=== PATIENT | male | born 1965 | race Caucasian/White ===

== ENCOUNTER 2022-07-23 16:24 | Inpatient (IN) | payer MEDICARE, MEDICAID, SELFPAY ==
[2022-07-23 16:44] VITALS: BP 115/70; PULSE 96; RESP 18; TEMP 36.2; O2SAT 98
--- NOTE | 2022-07-23 18:01 | W.ED.SKABFB ---
HPI - Skin/Abscess/Foreign Bdy General: Chief complaint: Skin/Abscess/Foreign Body Stated complaint: Extremely swollen Left leg Time Seen by Provider: 07/23/22 18:01 History of Present Illness: Mr. Zuñiga is a 57-year-old gentleman without reported past medical history presents to the emergency department due to left lower extremity concern. Reports initially having a scratch in 2017 due to chronic wound. He previously followed with wound care however was having improvement and so he stopped going. For some time now he has had worsening appearance including lower extremity edema. He incidentally saw [facility] earlier today and was referred to the emergency department. Denies systemic illness. Does endorse pain especially with ambulation. No other specific changes in health, exacerbating, or alleviating factors identified. Onset (ago): year(s) Location: LLE Severity: moderate Quality: aching Exacerbating factors: movement Context: none Associated symptoms: Reports no associated symptoms Review of Systems General: Reports: 10 or more systems reviewed and unremarkable except in HPI and below PFSH ED PFSH: Medical History (Updated 07/30/22 @ 10:30 by ROSINA Mercer) Cellulitis Chronic wound of extremity No significant past medical history Surgical History No significant past surgical history Physical Exam Const: COMMON NORMALS: alert GENERAL APPEARANCE: cooperative and well developed HENMT: COMMON NORMALS: normocephalic and atraumatic HEAD & SCALP: normocephalic and atraumatic THROAT: posterior oropharynx normal Eye: COMMON NORMALS: conjunctivae normal CONJUNCTIVA: Yes conjunctivae normal SCLERA: sclerae normal Neck/C-Spine: COMMON NORMALS: supple GENERAL: Yes trachea midline Resp: COMMON NORMALS: normal respiratory effort EFFORT & INSPECTION: Yes able to speak in complete sentences Cardio: COMMON NORMALS: regular rate and regular rhythm RATE: regular rate RHYTHM: regular rhythm GI: COMMON NORMALS: Soft to palpation PALPATION: Yes Soft to palpation and No Tenderness to palpation present (GI) PERCUSSION: normal to percussion Extremity: NARRATIVE EXTREMITY EXAM: Significant edema extending from the left foot all the way up to the left knee region. Erythema to mid calf. Significant wound which is circumferential about the left mid calf with areas of necrotic tissue. GENERAL: Yes normal exam except as noted and No edema Neuro: COMMON NORMALS: moves all extremities SENSORIUM/ORIENTATION: Yes alert and No Orientation impaired Psych: COMMON NORMALS: mental status grossly normal and Normal thought process present THOUGHT PROCESS: Normal thought process present Course Vital Signs: Vital signs: Vital Signs Temperature 97.6 F 07/26/22 15:49 Pulse Rate 102 H 07/26/22 15:49 Respiratory Rate 18 07/26/22 15:49 Blood Pressure 139/88 07/26/22 15:49 Pulse Oximetry 97 07/26/22 15:49 Oxygen Delivery Me thod 07/26/22 12:00 MDM - Skin/Abscess/Foreign Bdy Medicial Decision Making 57-year-old gentleman presenting with worsening symptoms associated with chronic wound. Exam as above. Wound is extensive and quite concerning with surrounding areas of erythema and edema. Labs with no leukocytosis, normocytic anemia present. No significant metabolic derangement. Inflammatory markers moderately elevated. X-ray negative for acute bony injury. Arterial and venous studies negative for significant arterial insufficiency or DVT. Given patient's reported worsening symptoms of concern for acute infection or chronic wound. Patient treated with antibiotics. Patient will be evaluated inpatient by Dr. Vasquez. The results of ED evaluation were discussed with the patient including plan for admission due to requirement for level of care not available if discharged to prevent significant worsening/deterioration. Patient agreeable with plan. Discussed with hospitalist service who was agreeable to admit patient. Medical Records I reviewed the patient's medical records. Lab Data I reviewed the patient's lab results. 07/26/22 04:49 07/25/22 05:40 Radiology Impressions Duplex Scan Lower Extremity Artery 07/23/22 18:10 IMPRESSION: No hemodynamically significant stenosis or occlusion. Venous Duplex 07/23/22 18:10 IMPRESSION: No sonographic evidence of deep vein thrombosis. Tibia/Fibula X-Ray 07/23/22 19:55 IMPRESSION: Severe, diffuse soft tissue swelling. Laboratory Results WBC 10.0 10^3/uL (4.0-10.0) 07/23/22 21:20 Corrected WBC Cancelled 07/23/22 20:21 RBC 3.90 10^6/uL (4.1-5.3) L 07/23/22 21:20 Hgb 11.1 g/dL (11.7-16.6) L 07/23/22 21:20 Hct 36.0 % (42.0-52.0) L 07/23/22 21:20 MCV 92.3 fl (80-94) 07/23/22 21:20 MCH 28.5 pg (28.0-34.0) 07/23/22 21:20 MCHC 30.8 g/dL (30.0-36.0) 07/23/22 21:20 RDW 14.8 % (12.1-15.1) 07/23/22 21:20 Plt Count 387 10^3/cmm (130-400) 07/23/22 21:20 MPV 9.9 fL (7.4-10.4) 07/23/22 21:20 Gran % Cancelled 07/23/22 20:21 Neut % (Auto) 69.1 % 07/23/22 21:20 Lymph % (Auto) 19.1 % 07/23/22 21:20 Gallia % (Auto) 10.9 % 07/23/22 21:20 Eos % (Auto) 0.0 % 07/23/22 21:20 Baso % (Auto) 0.6 % 07/23/22 21:20 Neut # (Auto) 6.88 10^3/uL (1.8-7.7) 07/23/22 21:20 Lymph # (Auto) 1.9 10^3/uL (0.8-4.8) 07/23/22 21:20 Gallia # (Auto) 1.1 10^3/uL (0.2-0.9) H 07/23/22 21:20 Eos # (Auto) 0.0 10^3/uL (0.0-0.8) 07/23/22 21:20 Baso # (Auto) 0.1 10^3/uL (0.0-0.1) 07/23/22 21:20 Absolute Gran (auto) Cancelled 07/23/22 20:21 Nucleated RBC % (auto) 0 % 07/23/22 21:20 Nucleated RBCs # 0.0 /100WBC 07/23/22 21:20 ESR 18 mm/hr (0-10) H 07/23/22 21:20 Sodium 140 mmol/L (136-145) 07/23/22 21:20 Potassium 4.0 mmol/L (3.5-5.1) 07/23/22 21:20 Chloride 104 mmol/L (98-107) 07/23/22 21:20 Carbon Dioxide 24 mmol/L (22-29) 07/23/22 21:20 Anion Gap 16.0 (5-19) 07/23/22 21:20 BUN 13 mg/dL (6-20) 07/23/22 21:20 Creatinine 0.9 mg/dL (0.7-1.2) 07/23/22 21:20 GFR Calculation 86.4 mL/min (90-130) L 07/23/22 21:20 Glucose 118 mg/dL (65-115) H 07/23/22 21:20 Calculated Osmolality 291 mOsm/kg (285-295) 07/23/22 21:20 Calcium 8.9 mg/dL (8.5-10.5) 07/23/22 21:20 Total Bilirubin 0.3 mg/dL (0.15-1.2) 07/23/22 21:20 AST 12 U/L (0-40) 07/23/22 21:20 ALT 10 U/L (0-41) 07/23/22 21:20 Alkaline Phosphatase 117 U/L (40-130) 07/23/22 21:20 C-Reactive Protein 50.9 mg/L (0.0-4.9) H 07/23/22 21:20 Total Protein 7.1 g/dL (6.6-8.7) 07/23/22 21:20 Albumin 3.3 g/dL (3.5-5.2) L 07/23/22 21:20 Globulin 3.8 g/dL (1.3-4.6) 07/23/22 21:20 Discharge Plan Discharge Patient Disposition: Placed in Observation Admit Provider: Francia Sorenson Clinical Impression: Cellulitis, Chronic wound of extremity Coding Level of Care Code 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
--- NOTE | 2022-07-23 18:10 | USR_ITS ---
PROCEDURE INFORMATION: Exam: US Duplex Left Lower Extremity Arteries Or Arterial Bypass Grafts Exam date and time: 07/23/2022 6:44 PM Age: 57 years old Clinical indication: Other: Patient has been seen in wound clinic since 2019 for this same problem of red, oozing, pus-filled, malodorous left mid calf to include all of the left foot. Patient denies dm. ; Additional info: Chronic wound TECHNIQUE: Imaging protocol: Left Real-time duplex scan of the arteries or arterial bypass grafts of the left lower extremity with 2-D boateng scale, color Doppler flow and spectral waveform analysis. Images documented and saved. COMPARISON: [place] [id number] 07/23/2022 6:26 PM FINDINGS: Left external iliac artery: No occlusion or significant stenosis. Normal waveform. Left common femoral artery: No occlusion or significant stenosis. Normal waveform. Left profunda femoral artery: No occlusion or significant stenosis. Normal waveform. Left superficial femoral artery: No occlusion or significant stenosis. Normal waveform. Left popliteal artery: No occlusion or significant stenosis. Normal waveform. Left calf/foot arteries: No occlusion or significant stenosis in the visualized arteries. Normal waveforms. Dorsalis pedis artery [place] patent. US/[place] [id number] IMPRESSION: No hemodynamically significant stenosis or occlusion.
--- NOTE | 2022-07-23 18:10 | USR_ITS ---
PROCEDURE INFORMATION: Exam: US Duplex Left Lower Extremity Veins, Limited Exam date and time: 07/23/2022 6:26 PM Age: 57 years old Clinical indication: Other: Chronic severe, pus-filled, oozing, red, malodorous from mid left calf inferiorly x 2 years. Has been seen in wound clinic. ; Additional info: Swelling, wound TECHNIQUE: Imaging protocol: Real-time Duplex ultrasound of the Left Lower Extremity with 2-D boateng scale, color Doppler flow and spectral waveform analysis with image documentation. Limited exam focused on the left lower extremity veins. COMPARISON: No relevant prior studies available. FINDINGS: Left deep veins: Unremarkable. The common femoral, femoral, proximal profunda femoral, popliteal, posterior tibial and peroneal veins are patent without thrombus. Normal compressibility, augmentation response and Doppler waveforms. Left superficial veins: Unremarkable. Saphenofemoral junction is patent without thrombus. Soft tissues: Unremarkable. US/CV venous duplex [facility] [id number] IMPRESSION: No sonographic evidence of deep vein thrombosis.
--- NOTE | 2022-07-23 19:55 | XRR_ITS ---
PROCEDURE INFORMATION: Exam: XR Left Tibia and Fibula Exam date and time: 07/23/2022 8:07 PM Age: 57 years old Clinical indication: Pain; Lower leg; Left; Additional info: Wound TECHNIQUE: Imaging protocol: Radiologic exam of the Left tibia and fibula. Views: 2 views. COMPARISON: US CV arterial duplex [facility] [id number] 07/23/2022 6:44 PM FINDINGS: Bones/joints: No radiographic evidence of acute fracture or dislocation. Alignment anatomic. Mild degenerative changes. Soft tissues: Severe, diffuse soft tissue swelling. XR/XR tibia fibula LT 2V [id number] IMPRESSION: Severe, diffuse soft tissue swelling.
[2022-07-23 21:34] LABS: Basophils # 0.1 10^3/uL (0.0-0.1); Basophils % 0.6 %; Hemoglobin 11.1 g/dL (11.7-16.6); Lymphocytes # 1.9 10^3/uL (0.8-4.8); Lymphocytes % 19.1 %; Mean Corpuscular HGB Conc 30.8 g/dL (30.0-36.0); Mean Corpuscular Hemoglobin 28.5 pg (28.0-34.0); Mean Corpuscular Volume 92.3 fl (80-94); Mean Platelet Volume 9.9 fL (7.4-10.4); Monocytes # 1.1 10^3/uL (0.2-0.9); Monocytes % 10.9 %; Neutrophils # 6.88 10^3/uL (1.8-7.7); Neutrophils % 69.1 %; Nucleated Red Blood Cells % 0 %; Platelet Count 387 10^3/cmm (130-400); Red Cell Distribution Width 14.8 % (12.1-15.1)
[2022-07-23 21:36] VITALS: BP 127/88; PULSE 78; RESP 16; O2SAT 97
[2022-07-23 21:37] LABS: Erythrocyte Sedimentation Rate 18 mm/hr (0-10)
[2022-07-23 21:57] LABS: Alanine Aminotransferase 10 U/L (0-41); Albumin Level 3.3 g/dL (3.5-5.2); Alkaline Phosphatase 117 U/L (40-130); Aspartate Amino Transferase 12 U/L (0-40); Blood Urea Nitrogen 13 mg/dL (6-20); C Reactive Protein 50.9 mg/L (0.0-4.9); Calcium 8.9 mg/dL (8.5-10.5); Carbon Dioxide 24 mmol/L (22-29); Chloride 104 mmol/L (98-107); Globulin 3.8 g/dL (1.3-4.6); Glomerular Filtration Rate 86.4 mL/min (90-130); Glucose 118 mg/dL (65-115); Osmolality Calculated 291 mOsm/kg (285-295); Sodium 140 mmol/L (136-145); Total Bilirubin 0.3 mg/dL (0.15-1.2); Total Protein 7.1 g/dL (6.6-8.7)
--- NOTE | 2022-07-23 22:29 | P.HP_ITS ---
Providers/Chief Complaint Chief Complaint: Extremely swollen Left leg History of Present Illness Rayshawn Zuñiga is a 57 year old male with no significant past medical history presented to the hospital with complaint of a chronic wound that has not been worsening. He says in 2017 in the winter due to central heating he had very dry skin in the area of itching himself to the point where he had skin breakage. He believes he impacted his leg at that point. He tried to take care of it on his own but then ended up going to wound care clinic. He was asked to wrap it and not to let water run on it. He states he did not shower for quite some time and that made the leg worse. When he ended up washing it which took care of the foul smell however the wound started worsening. Today nothing acutely has changed however he says his mother convinced him to go to the ER to seek medical attention for his leg. This is a chronic wound for him. He has been having drainage which he feels is ascitic and it valentni. He has had arterial and venous Dopplers which have been negative. In the ER he was placed on vancomycin and Zosyn and Dr. Rhodes was contacted who will see the patient in consultation. Afebrile. Denies cough, shortness of breath, nausea, vomiting, diarrhea. He did mention to me that he used to have a home care nurse come to the house in the past but no longer. Medications/Allergies Allergies Allergy/AdvReac Type Severity Reaction Status Date / Time No Known Allergies Allergy Verified 07/23/22 16:44 PFSH Acute PFSH: Medical History (Updated 07/23/22 @ 22:21 by Andrea Lima MD) No significant past medical history Surgical History (Updated 07/23/22 @ 19:05 by Andrea Lima MD) No significant past surgical history Vitals/I&O/Wt Last Vital Signs Temp 97.1 F L 07/23/22 16:44 Pulse 78 07/23/22 21:36 Resp 16 07/23/22 21:36 BP 127/88 07/23/22 21:36 Pulse Ox 97 07/23/22 21:36 O2 Del Method 07/23/22 21:36 Weight last 48 hrs Weight 137.438 kg Physical Exam Narrative: General: Alert oriented x3, patient seen sitting in bed. No acute distress. HEENT: Normocephalic, atraumatic, EOMI, Cardio: Regular rate rhythm, normal S1-S2 Respiratory: Good bilateral air entry, no wheezes no rhonchi appreciated GI: Abdomen soft, nontender, nondistended, bowel sounds + Extremities: Pulses present bilaterally with Doppler. Left lower extremity swollen, erythematous all the way up to knee. Foul-smelling drainage present. Please see attached picture. Data 07/23/22 21:20 07/23/22 21:20 Micro: Microbiology 07/23/22 20:21 Blood Culture - Preliminary Blood SPECIMEN COLLECTED 07/23/22 20:21 Blood Culture - Preliminary Blood SPECIMEN COLLECTED A&P Assessment and plan (1) Cellulitis: (2) Chronic wound of extremity: Plan #Acute on chronic left lower extremity wound #Cellulitis left lower extremity -Consult wound care. Dr. Devine will evaluate patient in a.m. ? Continue vancomycin and Zosyn ? CRP 50.9. Lactic acid normal 1.1. Sed rate 15. ? Await wound care recommendations. For now wrapped with gauze wet-to-dry dressing ? Check procalcitonin ? X-ray tibia fibula shows severe diffuse soft tissue swelling. DVT ruled out. Venous Dopplers done in the ER. Arterial Dopplers lower extremity did not show any significant stenosis or occlusion. ? Check blood cultures ? Check wound cultures ? Patient will probably benefit from debridement. Await further recommendations Full code DVT prophylaxis: Heparin SQ twice daily Attestations Medical Necessity Statement*: Requires greater than 2 midnight stay for man agement of cellulitis and acute on chronic left lower extremity wound. Patient will need possible surgical debridement and IV antibiotics. Coding Level of Care Code Acute Solution Developer for [facility] Fwd Diagnoses Cellulitis L03.90 Chronic wound of extremity
[2022-07-23] MEDS: cefTRIAXone 1,000 MG in sodium chloride 0.9% (plus) 50 ML 100 MG IV (22:32)
[2022-07-23] MEDS: benzonatate 100 mg Capsule PO (23:09)
--- NOTE | 2022-07-23 23:16 | PC.NURSE ---
ADMIT NOTE Pt received to room from ER via wheelchair. Is alert and oriented. Having a persistent dry cough which he says started in the ER and not present before. Given po Tessalon Pearls. Came in for swelling in left leg. Has swelling & redness from knee to foot. Says has had watery drainage and pain with wt bearing. Denies any fevers. Says all started from him scratching for dry skin and broke skin with the scratching. Says wound care for awhile but says was not really helping. This was in 2021 and says over last 6 months to year has been getting progressively worse. Recieved IV Rocephin in the ER and started IV Vancomycin on admission. L lower leg with dressing that was placed in the ER. RN to complete admission assessment
[2022-07-23 23:53] VITALS: BP 128/81; PULSE 94; RESP 17; TEMP 36.9; O2SAT 95
[2022-07-24] VITALS (7 sets, daily range): BP systolic 107–128; BP diastolic 64–81; PULSE 79–94; RESP 16–22; TEMP 36.4–36.9; O2SAT 93–97
[2022-07-24] MEDS: heparin 5,000 unit/mL INJ 1 mL 5000 UNIT SUBCUT ×4 (00:07→23:10)
[2022-07-24] MEDS: sodium chloride 0.9% 1,000 ML 75 ML IV (00:07)
[2022-07-24] MEDS: piperacillin-tazobactam 3.375 GM in sodium chloride 0.9% (plus) 50 ML IV ×3 (00:08→17:40)
[2022-07-24 01:37] LABS: Basophils % 0.5 %; Eosinophils % 0.1 %; Hematocrit 32.8 % (42.0-52.0); Hemoglobin 10.1 g/dL (11.7-16.6); Lymphocytes # 1.5 10^3/uL (0.8-4.8); Lymphocytes % 18.5 %; Mean Corpuscular HGB Conc 30.8 g/dL (30.0-36.0); Mean Corpuscular Hemoglobin 28.1 pg (28.0-34.0); Mean Corpuscular Volume 91.4 fl (80-94); Mean Platelet Volume 10.2 fL (7.4-10.4); Monocytes % 12.3 %; Neutrophils # 5.47 10^3/uL (1.8-7.7); Neutrophils % 68.3 %; Nucleated Red Blood Cells % 0 %; Platelet Count 348 10^3/cmm (130-400); Red Blood Count 3.59 10^6/uL (4.1-5.3); Red Cell Distribution Width 14.7 % (12.1-15.1)
--- NOTE | 2022-07-24 01:45 | PC.NURSE ---
DR VISIT Dr Sorenson on floor to see pt. Wanted dressing removed so she could see wound and take pictures. Wound redressed afterwards. Able to find both pedal & dorsalis pedia pulses with doppler
[2022-07-24 02:17] LABS: Alanine Aminotransferase 7 U/L (0-41); Albumin Level 2.9 g/dL (3.5-5.2); Alkaline Phosphatase 104 U/L (40-130); Aspartate Amino Transferase 12 U/L (0-40); Blood Urea Nitrogen 10 mg/dL (6-20); Carbon Dioxide 22 mmol/L (22-29); Chloride 108 mmol/L (98-107); Creatinine Clr Calc Pharmacy 148.6058; Globulin 3.2 g/dL (1.3-4.6); Glomerular Filtration Rate 98.9 mL/min (90-130); Glucose 123 mg/dL (65-115); Osmolality Calculated 292 mOsm/kg (285-295); Sodium 141 mmol/L (136-145); Total Bilirubin 0.3 mg/dL (0.15-1.2); Total Protein 6.1 g/dL (6.6-8.7)
[2022-07-24 02:18] LABS: Lactic Sepsis W/Reflex 1.1 mmol/L (0.5-2.2)
[2022-07-24 02:21] LABS: Procalcitonin 0.04 ng/mL (0-0.5)
[2022-07-24] MEDS: vancomycin 1,250 MG/250 ML PIGGYBACK 250 MG IV ×3 (06:33→22:07)
--- NOTE | 2022-07-24 09:12 | P.PN_ITS ---
Subjective Subjective: Patient stating that he has stopped going to wound care and clinic No active leg pain No signs of vascular compromise Complaining of mild tingling sensation in his left leg He lives alone Vitals/I&O/Wt Last Vital Signs Temp 98.5 F 07/24/22 07:59 Pulse 84 07/24/22 07:59 Resp 16 07/24/22 07:59 BP 117/71 07/24/22 07:59 Pulse Ox 93 07/24/22 07:59 O2 Del Method 07/24/22 07:59 07/23/22 07/24/22 07/24/22 22:59 06:59 14:59 Intake Total 800 / 800 250 / 250 Output Total 700 / 700 Balance 100 / 100 250 / 250 Weight last 48 hrs Weight 137.438 kg Physical Exam Narrative: Obese male Current HemeTab is able Doing well improvement Complaining of pain in his left leg No signs of vascular compromise His calf is swollen which is chronic for him no active tenderness or crepitation noted No signs of vascular compromise Necrotic tissue around upper edges of the wound There is an area of the wound around ankle which has scarred fibrosed dressing Data 07/24/22 00:56 07/24/22 00:56 Micro: Microbiology 07/23/22 20:21 Blood Culture - Preliminary Blood SPECIMEN COLLECTED 07/23/22 20:21 Blood Culture - Preliminary Blood SPECIMEN COLLECTED A&P Assessment and plan (1) Cellulitis: (2) Chronic wound of extremity: Plan Cellulitis of lower extremity Patient might need debridement of the tissue from the upper edges of the wound For now we doing wet-to-dry dressing, Daikin, during dressing change, no signs o f vascular compromise No arterial insufficiency Foot is warm Nontender to touch No signs of crepitation Will follow up with Dr. 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
--- NOTE | 2022-07-24 09:13 | PC.CHAP ---
Pastoral Care Encounter/Spiritual Assessment Type of Contact [] Declined compressor engineer visit [] Patient/Family/Request visit [] Outpatient visit [] Follow-up visit [] Physician referral [] Code/Alert [x] Routine visit [] Staff referral [] Actively dying [] Patient sleeping [] Family support [] [] Out of room [] Palliative care [] [] Receiving care in room [] Pre-surgical visit [] Trauma [] Long length of stay [] ICU visit [] Other: Relational/Emotional Strength [x] Patient feels connected with others/family/visitors/staff [] Distress [] Loneliness/isolation [] Abandonment Spirituality of Patient [] Person of Lizzie [] Attends Yazidi of their Lizzie [] Believes in Prayer [] Reads Bible or Anglican materials [x] There are Spiritual issues to be addressed 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 Interventions [] Prayer [x] Active listening [x] Non-anxious presence [x] Spiritual/emotional support [] Crisis/trauma care [] Spiritual counseling [] Bereavement support [] Provided bereavement packet [] Provided Bible/devotional materials [] Provided toy/stuffed animal, coloring book to patient or family member [] Provided Communion [] Anointing/Dun[place] [] Salvation [x] Completed spiritual assessment [] Other: Impact on Illness or Injury [] Angry [] Fearful [] Anxious [] Often cries [] Exhaustion [] Unable to work [] Unable to attend jainism [] Unable to walk/stand [] Unable to read [] Unable to drive [] Unable to eat/drink [] Unable to sleep [] Unable to be with family [] Patient intubated [] Other: Summary Pt has a painful would on his leg. He said he has been dealing with it since 2017. Visit ended when staff entered to care for Pt Time spent with patient 10m
[2022-07-24 09:42] LABS: Estmated Average Glucose 123; Hemoglobin A1C 5.9 % (4.0-6.0)
[2022-07-24] MEDS: gabapentin 100 mg Capsule PO (17:43)
--- NOTE | 2022-07-24 18:43 | PM.CONSULT ---
Providers/Reason For Consult Consulting Physician/Specialty*: Dr. Rhodes/wound care services Reason for Consult*: Chronic circumferential left lower extremity wound Requesting Physician: Dr. Woodall Attending Physician: Hector Woodall MD History of Present Illness History of Present Illness Rayshawn Zuñiga is a 57 year old male who was admitted on July 23 is presenting to the emergency department for advice of family member concerning a chronic circumferential left lower extremity wound which is been present since 2017. Patient is unable concerns of increasing malodor with wound. He also reports some slight increase in drainage though does note that it drains frequently. Since admission, patient's been receiving Dakin's wet-to-dry dressings. He has been placed on Zosyn and vancomycin. He remains afebrile. Venous duplex studies negative for DVT. Arterial duplex study revealed no evidence for substantial arterial obstruction. Wound begins at the proximal portion of the forefoot level of the ankle and extends several centimeters proximally and circumferentially. Initial laboratory data revealed a white count of 10,000 with a CRP of 51. ESR was 18. Wound culture returned mixed superficial jess on day 1. Blood cultures have been collected and Covid reports are pending. He reports a past history of borderline diabetes and states that diabetes is in his family. He resides in [place] and is lived there his entire life. He has no consistent healthcare and states he goes to the walk-in clinic when needed. Medications/Allergies Home Medications Medication Instructions Recorded Confirmed Last Taken Type No Known Home Medications 07/24/22 07/24/22 Unknown History Allergies Allergy/AdvReac Type Severity Reaction Status Date / Time No Known Allergies Allergy Verified 07/23/22 16:44 Current Medications Generic Name Dose Route Start Last Admin Trade Name Freq PRN Reason Stop Dose Admin Benzonatate 100 mg 07/23/22 22:44 07/23/22 23:09 Benzonatate 100 Mg Capsule PO 100 mg TID PRN Administration COUGH Gabapentin 100 mg 07/24/22 18:00 07/24/22 17:43 Gabapentin 100 Mg Capsule PO 100 mg BID AUTUMN Administration Heparin Sodium (Porcine) 5,000 unit 07/23/22 23:45 07/24/22 14:17 Heparin 5,000 Unit/Ml Inj 1 Ml SUBCUT 5,000 unit Q8H AUTUMN Administration Piperacillin Sod/Tazobactam 50 mls @ 12.5 mls/hr 07/24/22 00:00 07/24/22 17:40 Sod 3.375 gm/ Sodium Chloride IV 12.5 mls/hr Q8H AUTUMN Administration Vancomycin/PEG/NADA/Lysine/Water 1,250 mg in 250 mls @ 250 mls/hr 07/24/22 07:00 07/24/22 15:15 Vancocin IV Infused Q8H AUTUMN Infusion PFSH Acute PFSH: Medical History No significant past medical history Surgical History No significant past surgical history Vitals/I&O/Wt Last Vital Signs Temp 98.2 F 07/24/22 15:49 Pulse 89 07/24/22 15:49 Resp 16 07/24/22 15:49 BP 111/64 07/24/22 15:49 Pulse Ox 96 07/24/22 15:49 O2 Del Method 07/24/22 15:49 07/24/22 07/24/22 07/24/22 06:59 14:59 22:59 Intake Total 800 / 800 1266.25 / 1266.25 490 / 1756.25 Output Total 700 / 700 600 / 600 Balance 100 / 100 666.25 / 666.25 490 / 1156.25 Weight last 48 hrs Weight 303 lb Physical Exam Const: COMMON NORMALS: no acute distress, patient oriented x3, healthy appearing and alert HENMT: COMMON NORMALS: normocephalic, atraumatic and hearing grossly normal bilaterally HEAD & SCALP: normocephalic and atraumatic Neck/C-Spine: COMMON NORMALS: full ROM and no lymphadenopathy Chest: COMMONS NORMALS: normal palpation of entire chest wall Resp: COMMON NORMALS: normal respiratory effort Cardio: COMMON NORMALS: regular rate, regular rhythm, S1 normal heart sound present, No murmurs present (Cardio) and No rub (Cardio) RATE: regular rate RHYTHM: regular rhythm HEART SOUNDS: S1 normal heart sound present GI: COMMON NORMALS: Normal to inspection, nondistended, normoactive bowel sounds present Extremity: NARRATIVE EXTREMITY EXAM: He has venous stasis changes with discoloration bilaterally (the right. He has no wounds on the right side reports no history for wounds on the right lower extremity. He has a superficial wound extending from the ankle proximally several centimeters. There is moderate granulation circumferentially as well with slightly mucoid drainage from the wound. This can be easily cleared with 4 x 4 sponge gauze. There is minimal periwound erythema. There is no malodor. There is no vinicius treatments. He states wound is been present in some form since 2017. Apparently, he was recommended for compressive therapy during his previous visits to wound care services years ago, though he states he has not been doing that. Neuro: COMMON NORMALS: patient oriented x3 SENSORIUM/ORIENTATION: Yes alert Data 07/24/22 00:56 07/24/22 00:56 Micro: Microbiology 07/23/22 19:05 Wound Culture - Preliminary Leg - #1 07/23/22 20:21 Blood Culture - Preliminary Blood SPECIMEN COLLECTED 07/23/22 20:21 Blood Culture - Preliminary Blood SPECIMEN COLLECTED A&P Assessment and plan (1) Chronic wound of extremity: Chronic superficial wound of the distal left lower extremity just above the ankle. Normal arterial duplex. Normal venous study which ruled out DVT. No study to assess reflux provocation was performed. Initial impression is consistent with probable venous reflux disease and incontinence. Given chronicity and size of the wound and circumferential nature, I believe consideration should be made for wound VAC, negative pressure therapy for initial treatment. This would be contagious given his location and [place] and distance to wound care services. This would most practical if home arrangements can be made to assist with wound VAC dressing changes to allow for twice weekly changes. He can be followed in [facility] wound care services at discharge. Ultimately, he will need compression therapy to assist with healing and clearly with maintenance of skin integrity. I think the rate of the wound will be an extended period of time given his chronicity and intermediate care. If the bacteria cannot be arranged prior to discharge, patient should receive wet-to-dry dressing changes and moderate Leonel bandage. I suspect with the amount of serous drainage, dressing changes will need to be performed at least twice daily to 3 times daily. Consult Attestations Medical Necessity Statement: Chronic left lower extremity wound Time Spent in Patient Care: 16 - 35 minutes Coding Level of Care Code New Pt Acute Special Educator for Chg Fwd Patient Type New History Expanded Problem Focused Exam Expanded Problem Focused Medical Decision Making Moderate Complexity Diagnoses Chronic wound of extremity Time Spent (min) 35
[2022-07-25] MEDS: piperacillin-tazobactam 3.375 GM in sodium chloride 0.9% (plus) 50 ML IV (00:55)
[2022-07-25 04:00] VITALS: BP 155/80; PULSE 72; RESP 16; TEMP 36.6; O2SAT 95
[2022-07-25 05:54] LABS: Basophils # 0.1 10^3/uL (0.0-0.1); Eosinophils # 0.3 10^3/uL (0.0-0.8); Eosinophils % 4.4 %; Hemoglobin 10.8 g/dL (11.7-16.6); Lymphocytes # 1.7 10^3/uL (0.8-4.8); Mean Corpuscular HGB Conc 30.9 g/dL (30.0-36.0); Mean Corpuscular Hemoglobin 28.3 pg (28.0-34.0); Mean Corpuscular Volume 91.9 fl (80-94); Mean Platelet Volume 9.9 fL (7.4-10.4); Monocytes # 0.6 10^3/uL (0.2-0.9); Monocytes % 9.6 %; Neutrophils # 3.44 10^3/uL (1.8-7.7); Neutrophils % 56.7 %; Nucleated Red Blood Cells % 0 %; Platelet Count 374 10^3/cmm (130-400); Red Blood Count 3.81 10^6/uL (4.1-5.3); Red Cell Distribution Width 14.9 % (12.1-15.1); White Blood Count 6.1 10^3/uL (4.0-10.0)
[2022-07-25 06:08] LABS: Anion Gap 15.8 (5-19); Blood Urea Nitrogen 8 mg/dL (6-20); Calcium 8.3 mg/dL (8.5-10.5); Carbon Dioxide 21 mmol/L (22-29); Chloride 110 mmol/L (98-107); Creatinine Clr Calc Pharmacy 148.6058; Glomerular Filtration Rate 98.9 mL/min (90-130); Glucose 122 mg/dL (65-115); Osmolality Calculated 296 mOsm/kg (285-295); Potassium 3.8 mmol/L (3.5-5.1); Sodium 143 mmol/L (136-145)
[2022-07-25 06:37] LABS: Vancomycin Trough 23.8 ug/mL (10-15)
[2022-07-25 07:29] VITALS: BP 112/73; PULSE 67; RESP 16; TEMP 36.8; O2SAT 95
--- NOTE | 2022-07-25 10:24 | PC.CHAP ---
Pastoral Care Encounter/Spiritual Assessment Type of Contact [] Declined churn operator visit [] Patient/Family/Request visit [] Outpatient visit [] Follow-up visit [] Physician referral [] Code/Alert [x] Routine visit [] Staff referral [] Actively dying [] Patient sleeping [] Family support [] [] Out of room [] Palliative care [] [x] Receiving care in room [] Pre-surgical visit [] Trauma [] Long length of stay [] ICU visit [] Other: Relational/Emotional Strength [x] Patient feels connected with others/family/visitors/staff [] Distress [] Loneliness/isolation [] Abandonment Spirituality of Patient [x] Person of Lizzie [] Attends Gnosticist of their Lizzie [x] Believes in Prayer [] Reads Bible or Religion materials [] There are Spiritual issues to be addressed Airplane Patroller Interventions [x] Prayer [x] Active listening [x] Non-anxious presence [x] Spiritual/emotional support [] Crisis/trauma care [x] Spiritual counseling [] Bereavement support [] Provided bereavement packet [] Provided Bible/devotional materials [] Provided toy/stuffed animal, coloring book to patient or family member [] Provided Communion [] Anointing/[place] [] Salvation [] Completed spiritual assessment [] Other: Impact on Illness or Injury [] Angry [] Fearful [] Anxious [] Often cries [] Exhaustion [] Unable to work [] Unable to attend religion [] Unable to walk/stand [] Unable to read [] Unable to drive [] Unable to eat/drink [] Unable to sleep [] Unable to be with family [] Patient intubated [] Other: Summary congetion is feeling better has a good attitude going home Time spent with patient 10 mins
--- NOTE | 2022-07-25 10:44 | P.PN_ITS ---
Subjective Subjective: No overnight events Appreciate Dr. Rhodes's recommendations Patient is stating that his tingling sensation has improved after placement of dressing He thinks the serous drainage has decreased in quantity Vitals/I&O/Wt Last Vital Signs Temp 98.3 F 07/25/22 07:29 Pulse 67 07/25/22 07:29 Resp 16 07/25/22 07:29 BP 112/73 07/25/22 07:29 Pulse Ox 95 07/25/22 07:29 O2 Del Method 07/25/22 07:29 07/24/22 07/25/22 07/25/22 22:59 06:59 14:59 Intake Total 740 / 2006.25 660 / 2666.25 240 / 240 Output Total 625 / 1225 325 / 1550 Balance 115 / 781.25 335 / 1116.25 240 / 240 Weight last 48 hrs Weight 137.438 kg Physical Exam Narrative: Patient is sitting comfortably in his bed Eating breakfast He was on room air Hemodynamically stable Abdomen soft Foot covered with dressing, serous drainage noted from his wound No active pain No sign of vascular compromise Swelling seems to be slightly better S1, S2 Edema, PERRLA Data 07/25/22 05:40 07/25/22 05:40 Micro: Microbiology 07/23/22 20:21 Blood Culture - Preliminary Blood NEGATIVE TO DATE 07/23/22 20:21 Blood Culture - Preliminary Blood NEGATIVE TO DATE 07/23/22 19:05 Wound Culture - Preliminary Leg - #1 A&P Assessment and plan (1) Cellulitis: (2) Chronic wound of extremity: Plan Spoke with Dr. Rhodes who is recommending daily dressing change, looking into options to see if we can arrange home health if not possible then we will discharge him on oral antibiotics tomorrow with outpatient wound care clinic follow-up Will touch base with bilingual patient support caseworker Discontinued IV antibiotics No signs of sepsis I will cover him with Augmentin and doxycycline for now We will give him Lasix Slight improvement of swelling of left leg No signs of vascular compromise Patient is not diabetic Currently doing well on room air Plan to discharge tomorrow DVT prophylaxis on board Daily dressing change twice a day wet-to-dry, please see Dr. Rhodes's wound care orders Attestations Medical Necessity Statement*: Discharge tomorrow Time Spent in Patient Care: 40 Coding Level of Care Code Acute Shirring Tender for g Fwd Diagnoses Cellulitis L03.90 Chronic wound of extremity
[2022-07-25] MEDS: potassium chloride ER 20 mEq Tablet 40 MEQ PO (11:10)
[2022-07-25] MEDS: FUROsemide 10 mg/mL SDV 2mL 20 MG IVP (11:10)
[2022-07-25] MEDS: heparin 5,000 unit/mL INJ 1 mL 5000 UNIT SUBCUT ×3 (11:11→23:12)
[2022-07-25] MEDS: gabapentin 100 mg Capsule PO ×2 (11:11→17:23)
[2022-07-25] MEDS: sennosides-docusate Tablet 1 TAB PO (11:11)
[2022-07-25 11:48] VITALS: BP 125/79; PULSE 91; RESP 16; TEMP 36.6; O2SAT 98
[2022-07-25 16:00] VITALS: BP 123/77; PULSE 105; RESP 15; TEMP 36.8; O2SAT 96
[2022-07-25] MEDS: doxycycline 100 mg Tablet PO (17:23)
[2022-07-25] MEDS: amoxicillin-clav 875-125 mg Tablet 1 TAB PO (17:23)
[2022-07-25 19:18] VITALS: BP 142/82; PULSE 86; RESP 22; TEMP 36.6; O2SAT 96
[2022-07-26] VITALS: BP 177/75; PULSE 74; RESP 22; TEMP 36.6; O2SAT 96
[2022-07-26 04:00] VITALS: BP 125/86; PULSE 89; RESP 27; TEMP 36.7; O2SAT 100
[2022-07-26 05:31] LABS: Basophils # 0.1 10^3/uL (0.0-0.1); Basophils % 1.1 %; Eosinophils # 0.2 10^3/uL (0.0-0.8); Eosinophils % 3.6 %; Hematocrit 35.2 % (42.0-52.0); Hemoglobin 10.8 g/dL (11.7-16.6); Lymphocytes % 37.4 %; Mean Corpuscular HGB Conc 30.7 g/dL (30.0-36.0); Mean Corpuscular Hemoglobin 28.6 pg (28.0-34.0); Mean Corpuscular Volume 93.1 fl (80-94); Mean Platelet Volume 10.2 fL (7.4-10.4); Monocytes # 0.5 10^3/uL (0.2-0.9); Neutrophils # 2.59 10^3/uL (1.8-7.7); Neutrophils % 48.7 %; Nucleated Red Blood Cells % 0 %; Platelet Count 382 10^3/cmm (130-400); Red Blood Count 3.78 10^6/uL (4.1-5.3); Red Cell Distribution Width 15.1 % (12.1-15.1); White Blood Count 5.3 10^3/uL (4.0-10.0)
--- NOTE | 2022-07-26 06:37 | P.DS_ITS ---
Discharge Providers Date of Admission: 07/23/22 22:21 Date of Discharge: July 26, 2022 Attending Provider at Admission: Francia Sorenson MD Attending Provider at Discharge: Hector Woodall MD Diagnoses at Discharge Discharge Diagnosis (1) Cellulitis: Status: Acute (2) Chronic wound of extremity: Status: Acute Reason for Visit Reason for Visit: Extremely swollen Left leg Hospital Course Hospital Course 57-year-old male with history of chronic lower extremity venous ulcer, history of noncompliance, stopped following up with wound care clinic, presented with chief complaint of increased drainage from his wound. Patient is stating that he was doing fine but his mother asked him to go to the hospital because of worsening of drainage from his left lower extremity. Dr. Rhodes was consulted. Kindly see his note for further details. Patient might benefit from wound VAC b ecause of increased drainage however it might be difficult to get dressing changed twice a week because of noncompliance with home health services in the past. Decision was made to discharge patient with dressing supplies and have him follow-up outpatient at wound care clinic. Patient is stating that his mother would be able to drive him there. He remained aseptic, afebrile. Suspicion for osteomyelitis is low. Blood cultures remain negative ESR not extremely high. He was given vancomycin and Zosyn which was de-escalated to Augmentin and doxycycline at the time of discharge. Adding gabapentin for neuropathic pain. Patient is not diabetic. Patient did not show any signs of vascular compromise or DVT Physical Exam Narrative: Awake and alert Morbidly obese Intellectual disability Short attention span however GCS 15 Pleasant to cooperate Hemodynamic stable doing well on room air Left leg chronic venous stasis ulcer, circumferential wound, severe edema of left calf no active crepitation, dressing soaked with serous discharge from the wound, good granulation tissue at the wound edges, Lower extremity is warm no signs of vascular compromise Discharge Data Studies Completed and Pending Completed Studies During Hospitalization Category Date Time Status XR tibia fibula LT 2V [id number] Stat Exams 07/23/22 19:55 Completed US arterial duplex lower extremity LT [CV arterial Ultrasound 07/23/22 18:10 [place] [id number]] Stat US venous duplex lower extremity LT [CV venous duplex Ultrasound 07/23/22 18:10 [place] [id number]] Stat Pending at discharge Category Date Time Status Blood Culture Stat Lab 07/23/22 20:21 Results Radiology Impressions Duplex Scan Lower Extremity Artery 07/23/22 18:10 IMPRESSION: No hemodynamically significant stenosis or occlusion. Venous Duplex 07/23/22 18:10 IMPRESSION: No sonographic evidence of deep vein thrombosis. Tibia/Fibula X-Ray 07/23/22 19:55 IMPRESSION: Severe, diffuse soft tissue swelling. Laboratory Results WBC 5.3 10^3/uL (4.0-10.0) 07/26/22 04:49 Corrected WBC Cancelled 07/23/22 20:21 RBC 3.78 10^6/uL (4.1-5.3) L 07/26/22 04:49 Hgb 10.8 g/dL (11.7-16.6) L 07/26/22 04:49 Hct 35.2 % (42.0-52.0) L 07/26/22 04:49 MCV 93.1 fl (80-94) 07/26/22 04:49 MCH 28.6 pg (28.0-34.0) 07/26/22 04:49 MCHC 30.7 g/dL (30.0-36.0) 07/26/22 04:49 RDW 15.1 % (12.1-15.1) 07/26/22 04:49 Plt Count 382 10^3/cmm (130-400) 07/26/22 04:49 MPV 10.2 fL (7.4-10.4) 07/26/22 04:49 Gran % Cancelled 07/23/22 20:21 Neut % (Auto) 48.7 % 07/26/22 04:49 Lymph % (Auto) 37.4 % 07/26/22 04:49 [place] % (Auto) 9.0 % 07/26/22 04:49 Eos % (Auto) 3.6 % 07/26/22 04:49 Baso % (Auto) 1.1 % 07/26/22 04:49 Neut # (Auto) 2.59 10^3/uL (1.8-7.7) 07/26/22 04:49 Lymph # (Auto) 2.0 10^3/uL (0.8-4.8) 07/26/22 04:49 [place] # (Auto) 0.5 10^3/uL (0.2-0.9) 07/26/22 04:49 Eos # (Auto) 0.2 10^3/uL (0.0-0.8) 07/26/22 04:49 Baso # (Auto) 0.1 10^3/uL (0.0-0.1) 07/26/22 04:49 Absolute Gran (auto) Cancelled 07/23/22 20:21 Nucleated RBC % (auto) 0 % 07/26/22 04:49 Nucleated RBCs # 0.0 /100WBC 07/26/22 04:49 ESR 18 mm/hr (0-10) H 07/23/22 21:20 Sodium 143 mmol/L (136-145) 07/25/22 05:40 Potassium 3.8 mmol/L (3.5-5.1) 07/25/22 05:40 Chloride 110 mmol/L (98-107) H 07/25/22 05:40 Carbon Dioxide 21 mmol/L (22-29) L 07/25/22 05:40 Anion Gap 15.8 (5-19) 07/25/22 05:40 BUN 8 mg/dL (6-20) 07/25/22 05:40 Creatinine 0.8 mg/dL (0.7-1.2) 07/25/22 05:40 GFR Calculation 98.9 mL/min (90-130) 07/25/22 05:40 Glucose 122 mg/dL (65-115) H 07/25/22 05:40 Estimat Average Glucose 123 07/24/22 00:56 Hemoglobin A1c 5.9 % (4.0-6.0) 07/24/22 00:56 Calculated Osmolality 296 mOsm/kg (285-295) H 07/25/22 05:40 Lactic Acid 1.1 mmol/L (0.5-2.2) 07/24/22 00:56 Calcium 8.3 mg/dL (8.5-10.5) L 07/25/22 05:40 Magnesium 2.0 mg/dL (1.7-2.3) 07/24/22 00:56 Total Bilirubin 0.3 mg/dL (0.15-1.2) 07/24/22 00:56 AST 12 U/L (0-40) 07/24/22 00:56 ALT 7 U/L (0-41) 07/24/22 00:56 Alkaline Phosphatase 104 U/L (40-130) 07/24/22 00:56 C-Reactive Protein 50.9 mg/L (0.0-4.9) H 07/23/22 21:20 Total Protein 6.1 g/dL (6.6-8.7) L 07/24/22 00:56 Albumin 2.9 g/dL (3.5-5.2) L 07/24/22 00:56 Globulin 3.2 g/dL (1.3-4.6) 07/24/22 00:56 Procalcitonin 0.04 ng/mL (0-0.5) 07/24/22 00:56 Vancomycin Trough 23.8 ug/mL (10-15) H 07/25/22 05:40 Vitals Last Vital Signs Temp 98.0 F 07/26/22 04:00 Pulse 89 07/26/22 04:00 Resp 27 H 07/26/22 04:00 BP 125/86 07/26/22 04:00 Pulse Ox 100 07/26/22 04:00 O2 Del Method 07/25/22 16:00 Discharge Plan Discharge Patient Disposition: Home Condition: Stable Prescriptions: New doxycycline monohydrate 100 mg Tablet 100 mg PO BID Qty: 20 0RF gabapentin 100 mg Capsule 100 mg PO BID Qty: 60 0RF amoxicillin-pot clavulanate 875-125 mg Tablet 1 tab PO BID Qty: 20 0RF No Action No Known Home Medications Discharge Orders: Discharge Order (Routine); Ordered 07/26/22 Ordered By: Hector Woodall Other Ambulatory Orders: DME: Foreign (Order) Location: None Selected Ordered By: Hector Woodall Referrals: Jaqueline Childress FNP [Nurse Practitioner] - 07/30/22 10:00 am WOUND CARE CLINIC, [Staff Physician] - 1-3 days Patient Instructions: Doxycycline (By mouth), Amoxicillin/Clavulanate Potassium (By mouth), Gabapentin (By mouth), Cellulitis (GEN), Opioid Safety Discharge Attestations Time Spent in Discharge Care*: less than 30 min Quality Metrics Clinical Quality Measures [ No reported AMI, CVA or VTE this stay] Coding Level of Care Code Acute Chg FW DC note Diagnoses Cellulitis L03.90 Chronic wound of extremity
[2022-07-26 08:00] VITALS: BP 121/75; PULSE 75; RESP 18; TEMP 36.7; O2SAT 96
[2022-07-26] MEDS: heparin 5,000 unit/mL INJ 1 mL 5000 UNIT SUBCUT (09:43)
[2022-07-26] MEDS: gabapentin 100 mg Capsule PO (09:44)
[2022-07-26] MEDS: doxycycline 100 mg Tablet PO (09:44)
[2022-07-26] MEDS: amoxicillin-clav 875-125 mg Tablet 1 TAB PO (09:44)
[2022-07-26 12:00] VITALS: BP 139/88; PULSE 102; RESP 18; TEMP 36.4; O2SAT 97
[2022-07-26 15:49] VITALS: BP 139/88; PULSE 102; RESP 18; TEMP 36.4; O2SAT 97
--- NOTE | 2022-07-26 15:58 | PC.NURSE ---
1415 discharge instructions given to patient who voiced understanding. wound care completed to left lower leg patient instructed on wound care. patient voiced understanding 1520 Patient discharged to home with mother patient taken to private car per staff in wheelchair. patient in stable condition.
== END 2022-07-26 15:20 | disposition home health service (06) | DRG 603 ==
LOC: ER 22:21 → MEDSURG 22:39
PROVIDERS: Admitting Provider Internal Medicine; Emergency Provider Emergency Medicine; Visit Provider Internal Medicine
DX: L03.116 Cellulitis of left lower limb (principal); Z91.199 Patient's noncompliance with other medical treatment and regimen due to unspecified reason; E66.01 Morbid (severe) obesity due to excess calories; Z68.37 Body mass index [BMI] 37.0-37.9, adult; R73.03 Prediabetes
CPT/HCPCS: 36415; 73590; 80048; 80053; 80202; 83036; 83605; 83735; 84145; 85025; 85651; 86140; 87040; 87070; 87077; 87186; 93926; 93971; 96372; 97161; 97530; J0696; J1644; J1940; J2543; J3370; J7030; J7040

== ENCOUNTER → 2022-08-05 08:02 | Outpatient (BNVA) | payer MEDICARE, MEDICAID, SELFPAY | PROVIDERS: PCP Family Medicine; Visit Provider Thoracic Surgery (Cardiothoracic Vascular Surgery) | DX: L03.116 Cellulitis of left lower limb (principal) | CPT/HCPCS: 11042; 11045; 99213; A6252; A6253 ==

== ENCOUNTER → 2022-08-12 09:19 | Outpatient (BNVA) | payer MEDICARE, MEDICAID, SELFPAY | PROVIDERS: PCP Family Medicine; Visit Provider Thoracic Surgery (Cardiothoracic Vascular Surgery) | DX: I96 Gangrene, not elsewhere classified (principal); L97.822 Non-pressure chronic ulcer of other part of left lower leg with fat layer exposed; L03.116 Cellulitis of left lower limb | CPT/HCPCS: 11042; 11045; A6252 ==

== ENCOUNTER → 2022-08-19 09:50 | Outpatient (BNVA) | payer MEDICARE, MEDICAID, SELFPAY | PROVIDERS: PCP Family Medicine; Visit Provider Thoracic Surgery (Cardiothoracic Vascular Surgery) | DX: L03.116 Cellulitis of left lower limb (principal); L97.822 Non-pressure chronic ulcer of other part of left lower leg with fat layer exposed | CPT/HCPCS: 11042; 11045; A6252 ==

== ENCOUNTER → 2022-08-26 09:31 | Outpatient (BNVA) | payer MEDICARE, MEDICAID, SELFPAY | PROVIDERS: PCP Family Medicine; Visit Provider Thoracic Surgery (Cardiothoracic Vascular Surgery) | DX: L03.116 Cellulitis of left lower limb (principal); L97.822 Non-pressure chronic ulcer of other part of left lower leg with fat layer exposed | CPT/HCPCS: 11042; 11045; A6252; A6253 ==

== ENCOUNTER → 2022-09-02 10:05 | Outpatient (BNVA) | payer MEDICARE, MEDICAID, SELFPAY | PROVIDERS: PCP Family Medicine; Visit Provider Thoracic Surgery (Cardiothoracic Vascular Surgery) | DX: I96 Gangrene, not elsewhere classified (principal); L97.822 Non-pressure chronic ulcer of other part of left lower leg with fat layer exposed; L03.115 Cellulitis of right lower limb | CPT/HCPCS: 11042; 11045; A6252 ==

== ENCOUNTER → 2022-09-09 10:40 | Outpatient (BNVA) | payer MEDICARE, MEDICAID, SELFPAY | PROVIDERS: PCP Family Medicine; Visit Provider Thoracic Surgery (Cardiothoracic Vascular Surgery) | DX: I96 Gangrene, not elsewhere classified (principal); L03.116 Cellulitis of left lower limb; L97.822 Non-pressure chronic ulcer of other part of left lower leg with fat layer exposed | CPT/HCPCS: 11042; 11045; A6253 ==

== ENCOUNTER → 2022-09-16 10:12 | Outpatient (BNVA) | payer MEDICARE, MEDICAID, SELFPAY | PROVIDERS: PCP Family Medicine; Visit Provider Thoracic Surgery (Cardiothoracic Vascular Surgery) | DX: I96 Gangrene, not elsewhere classified (principal); L97.822 Non-pressure chronic ulcer of other part of left lower leg with fat layer exposed; L03.116 Cellulitis of left lower limb | CPT/HCPCS: 11042; 11045; A6252; A6253 ==

== ENCOUNTER → 2022-09-23 10:57 | Outpatient (BNVA) | payer MEDICARE, MEDICAID, SELFPAY | PROVIDERS: PCP Family Medicine; Visit Provider Thoracic Surgery (Cardiothoracic Vascular Surgery) | DX: L03.115 Cellulitis of right lower limb (principal); L97.822 Non-pressure chronic ulcer of other part of left lower leg with fat layer exposed; I96 Gangrene, not elsewhere classified | CPT/HCPCS: 11042; 11045; A6252 ==

== ENCOUNTER → 2022-09-30 10:20 | Outpatient (BNVA) | payer MEDICARE, MEDICAID, SELFPAY | PROVIDERS: PCP Family Medicine; Visit Provider Thoracic Surgery (Cardiothoracic Vascular Surgery) | DX: I96 Gangrene, not elsewhere classified (principal); L97.822 Non-pressure chronic ulcer of other part of left lower leg with fat layer exposed; L03.115 Cellulitis of right lower limb | CPT/HCPCS: 11042; 11045; A6252 ==

== ENCOUNTER → 2022-10-07 10:56 | Outpatient (BNVA) | payer MEDICARE, MEDICAID, SELFPAY | PROVIDERS: PCP Family Medicine; Visit Provider Thoracic Surgery (Cardiothoracic Vascular Surgery) | DX: L03.116 Cellulitis of left lower limb (principal); L97.822 Non-pressure chronic ulcer of other part of left lower leg with fat layer exposed | CPT/HCPCS: 11042; 11045; A6253 ==

== ENCOUNTER → 2022-10-14 09:41 | Outpatient (BNVA) | payer MEDICARE, MEDICAID, SELFPAY | PROVIDERS: PCP Family Medicine; Visit Provider Nurse Practitioner Family | DX: L97.822 Non-pressure chronic ulcer of other part of left lower leg with fat layer exposed (principal); L03.116 Cellulitis of left lower limb | CPT/HCPCS: 97597; 97598; A6252; A6253 ==

== ENCOUNTER → 2022-10-21 10:01 | Outpatient (BNVA) | payer MEDICARE, MEDICAID, SELFPAY | PROVIDERS: PCP Family Medicine; Visit Provider Thoracic Surgery (Cardiothoracic Vascular Surgery) | DX: I96 Gangrene, not elsewhere classified (principal); L97.822 Non-pressure chronic ulcer of other part of left lower leg with fat layer exposed; L03.116 Cellulitis of left lower limb | CPT/HCPCS: 11042; 11045; A6253 ==

== ENCOUNTER → 2022-10-28 09:15 | Outpatient (BNVA) | payer MEDICARE, MEDICAID, SELFPAY | PROVIDERS: PCP Family Medicine; Visit Provider Thoracic Surgery (Cardiothoracic Vascular Surgery) | DX: I96 Gangrene, not elsewhere classified (principal); L97.822 Non-pressure chronic ulcer of other part of left lower leg with fat layer exposed; L03.116 Cellulitis of left lower limb | CPT/HCPCS: 11042; 11045; A6253 ==

== ENCOUNTER → 2022-11-04 09:25 | Outpatient (BNVA) | payer MEDICARE, MEDICAID, SELFPAY | PROVIDERS: PCP Family Medicine; Visit Provider Thoracic Surgery (Cardiothoracic Vascular Surgery) | DX: I96 Gangrene, not elsewhere classified (principal); L97.822 Non-pressure chronic ulcer of other part of left lower leg with fat layer exposed; L03.116 Cellulitis of left lower limb | CPT/HCPCS: 11042; 11045; A6210; A6253 ==

== ENCOUNTER → 2022-11-11 09:26 | Outpatient (BNVA) | payer MEDICARE, MEDICAID, SELFPAY | PROVIDERS: PCP Family Medicine; Visit Provider Thoracic Surgery (Cardiothoracic Vascular Surgery) | DX: I96 Gangrene, not elsewhere classified (principal); L97.822 Non-pressure chronic ulcer of other part of left lower leg with fat layer exposed; L03.116 Cellulitis of left lower limb | CPT/HCPCS: 97597; 97598; A6210; A6253 ==

== ENCOUNTER → 2022-11-18 10:10 | Outpatient (BNVA) | payer MEDICARE, MEDICAID, SELFPAY | PROVIDERS: PCP Family Medicine; Visit Provider Thoracic Surgery (Cardiothoracic Vascular Surgery) | DX: I96 Gangrene, not elsewhere classified (principal); L97.822 Non-pressure chronic ulcer of other part of left lower leg with fat layer exposed; L03.116 Cellulitis of left lower limb | CPT/HCPCS: 11042; 11045; A6253 ==

== ENCOUNTER → 2022-11-25 10:06 | Outpatient (BNVA) | payer MEDICARE, MEDICAID, SELFPAY | PROVIDERS: PCP Family Medicine; Visit Provider Nurse Practitioner Family | DX: I96 Gangrene, not elsewhere classified (principal); L97.822 Non-pressure chronic ulcer of other part of left lower leg with fat layer exposed; L03.116 Cellulitis of left lower limb | CPT/HCPCS: 11042; 11045; A6253 ==

== ENCOUNTER → 2022-12-02 09:19 | Outpatient (BNVA) | payer MEDICARE, MEDICAID, SELFPAY | PROVIDERS: PCP Family Medicine; Visit Provider Thoracic Surgery (Cardiothoracic Vascular Surgery) | DX: L03.116 Cellulitis of left lower limb (principal); I96 Gangrene, not elsewhere classified; S81.812D Laceration without foreign body, left lower leg, subsequent encounter; X58.XXXD Exposure to other specified factors, subsequent encounter | CPT/HCPCS: 11042; 11045; A6210; A6253 ==

== ENCOUNTER → 2022-12-09 10:05 | Outpatient (BNVA) | payer MEDICARE, MEDICAID, SELFPAY | PROVIDERS: PCP Family Medicine; Visit Provider Thoracic Surgery (Cardiothoracic Vascular Surgery) | DX: L03.116 Cellulitis of left lower limb (principal); L97.821 Non-pressure chronic ulcer of other part of left lower leg limited to breakdown of skin; I96 Gangrene, not elsewhere classified | CPT/HCPCS: 11042; 11045; A6253 ==

== ENCOUNTER → 2022-12-23 09:49 | Outpatient (BNVA) | payer MEDICARE, MEDICAID, SELFPAY | PROVIDERS: PCP Family Medicine; Visit Provider Thoracic Surgery (Cardiothoracic Vascular Surgery) | DX: I96 Gangrene, not elsewhere classified (principal); L97.822 Non-pressure chronic ulcer of other part of left lower leg with fat layer exposed; L03.116 Cellulitis of left lower limb | CPT/HCPCS: 97597; 97598; A6253 ==

== ENCOUNTER → 2022-12-30 08:50 | Outpatient (BNVA) | payer MEDICARE, MEDICAID, SELFPAY | PROVIDERS: PCP Family Medicine; Visit Provider Thoracic Surgery (Cardiothoracic Vascular Surgery) | DX: I96 Gangrene, not elsewhere classified (principal); L97.822 Non-pressure chronic ulcer of other part of left lower leg with fat layer exposed; L03.116 Cellulitis of left lower limb | CPT/HCPCS: 97597; 97598; A6252 ==

== ENCOUNTER → 2023-01-06 09:55 | Outpatient (BNVA) | payer MEDICARE, MEDICAID, SELFPAY | PROVIDERS: PCP Family Medicine; Visit Provider Thoracic Surgery (Cardiothoracic Vascular Surgery) | DX: I87.2 Venous insufficiency (chronic) (peripheral) (principal); I96 Gangrene, not elsewhere classified; L97.822 Non-pressure chronic ulcer of other part of left lower leg with fat layer exposed | CPT/HCPCS: 97597; 97598; A6253 ==

== ENCOUNTER → 2023-01-13 10:07 | Outpatient (BNVA) | payer MEDICARE, MEDICAID, SELFPAY | PROVIDERS: PCP Family Medicine; Visit Provider Thoracic Surgery (Cardiothoracic Vascular Surgery) | DX: I96 Gangrene, not elsewhere classified (principal); I87.2 Venous insufficiency (chronic) (peripheral); L97.822 Non-pressure chronic ulcer of other part of left lower leg with fat layer exposed | CPT/HCPCS: 97597; 97598; A6210; A6253 ==

== ENCOUNTER → 2023-01-20 09:47 | Outpatient (BNVA) | payer MEDICARE, MEDICAID, SELFPAY | PROVIDERS: PCP Family Medicine; Visit Provider Thoracic Surgery (Cardiothoracic Vascular Surgery) | DX: I87.2 Venous insufficiency (chronic) (peripheral) (principal); L97.822 Non-pressure chronic ulcer of other part of left lower leg with fat layer exposed | CPT/HCPCS: 97597; 97598; A6210; A6252 ==

== ENCOUNTER → 2023-01-27 09:45 | Outpatient (BNVA) | payer MEDICARE, MEDICAID, SELFPAY | PROVIDERS: PCP Family Medicine; Visit Provider Thoracic Surgery (Cardiothoracic Vascular Surgery) | DX: I96 Gangrene, not elsewhere classified (principal); I87.2 Venous insufficiency (chronic) (peripheral); L97.822 Non-pressure chronic ulcer of other part of left lower leg with fat layer exposed | CPT/HCPCS: 97597; 97598; A6210; A6252 ==

== ENCOUNTER → 2023-02-03 09:27 | Outpatient (BNVA) | payer MEDICARE, MEDICAID, SELFPAY | PROVIDERS: PCP Family Medicine; Visit Provider Nurse Practitioner Family | DX: I96 Gangrene, not elsewhere classified (principal); I87.2 Venous insufficiency (chronic) (peripheral); L97.822 Non-pressure chronic ulcer of other part of left lower leg with fat layer exposed | CPT/HCPCS: 97597; 97598; A6210; A6253 ==

== ENCOUNTER → 2023-02-10 09:37 | Outpatient (BNVA) | payer MEDICARE, MEDICAID, SELFPAY | PROVIDERS: PCP Family Medicine; Visit Provider Thoracic Surgery (Cardiothoracic Vascular Surgery) | DX: I96 Gangrene, not elsewhere classified (principal); I87.2 Venous insufficiency (chronic) (peripheral); L97.822 Non-pressure chronic ulcer of other part of left lower leg with fat layer exposed | CPT/HCPCS: 11042; 11045; A6210; A6253 ==

== ENCOUNTER → 2023-02-17 10:32 | Outpatient (BNVA) | payer MEDICARE, MEDICAID, SELFPAY | PROVIDERS: PCP Family Medicine; Visit Provider Nurse Practitioner Family | DX: I96 Gangrene, not elsewhere classified (principal); I87.2 Venous insufficiency (chronic) (peripheral); L97.822 Non-pressure chronic ulcer of other part of left lower leg with fat layer exposed | CPT/HCPCS: 97597; 97598; A6210; A6253 ==

== ENCOUNTER → 2023-02-24 10:14 | Outpatient (BNVA) | payer MEDICARE, MEDICAID, SELFPAY | PROVIDERS: PCP Family Medicine; Visit Provider Thoracic Surgery (Cardiothoracic Vascular Surgery) | DX: I96 Gangrene, not elsewhere classified (principal); I87.2 Venous insufficiency (chronic) (peripheral); L97.822 Non-pressure chronic ulcer of other part of left lower leg with fat layer exposed | CPT/HCPCS: 11042; 11045; A6021; A6253 ==

== ENCOUNTER → 2023-03-03 10:32 | Outpatient (BNVA) | payer MEDICARE, MEDICAID, SELFPAY | PROVIDERS: PCP Family Medicine; Visit Provider Thoracic Surgery (Cardiothoracic Vascular Surgery) | DX: I96 Gangrene, not elsewhere classified (principal); I87.2 Venous insufficiency (chronic) (peripheral); L97.822 Non-pressure chronic ulcer of other part of left lower leg with fat layer exposed | CPT/HCPCS: 11042; 11045 ==

== ENCOUNTER → 2023-03-10 09:41 | Outpatient (BNVA) | payer MEDICARE, MEDICAID, SELFPAY | PROVIDERS: PCP Family Medicine; Visit Provider Thoracic Surgery (Cardiothoracic Vascular Surgery) | DX: I96 Gangrene, not elsewhere classified (principal); I87.2 Venous insufficiency (chronic) (peripheral); L97.822 Non-pressure chronic ulcer of other part of left lower leg with fat layer exposed | CPT/HCPCS: 97597; 97598; A6021; A6253 ==

== ENCOUNTER → 2023-03-17 10:12 | Outpatient (BNVA) | payer MEDICARE, MEDICAID, SELFPAY | PROVIDERS: PCP Family Medicine; Visit Provider Thoracic Surgery (Cardiothoracic Vascular Surgery) | DX: I96 Gangrene, not elsewhere classified (principal); I87.2 Venous insufficiency (chronic) (peripheral); L97.822 Non-pressure chronic ulcer of other part of left lower leg with fat layer exposed | CPT/HCPCS: 97597; 97598; A6021; A6253 ==

== ENCOUNTER → 2023-03-31 09:49 | Outpatient (BNVA) | payer MEDICARE, MEDICAID, SELFPAY | PROVIDERS: PCP Family Medicine; Visit Provider Thoracic Surgery (Cardiothoracic Vascular Surgery) | DX: I96 Gangrene, not elsewhere classified (principal); I87.2 Venous insufficiency (chronic) (peripheral); L97.822 Non-pressure chronic ulcer of other part of left lower leg with fat layer exposed | CPT/HCPCS: 97597; 97598; A6021 ==

== ENCOUNTER → 2023-04-07 09:44 | Outpatient (BNVA) | payer MEDICARE, MEDICAID, SELFPAY | PROVIDERS: PCP Family Medicine; Visit Provider Nurse Practitioner Family | DX: I96 Gangrene, not elsewhere classified (principal); I87.2 Venous insufficiency (chronic) (peripheral); L97.822 Non-pressure chronic ulcer of other part of left lower leg with fat layer exposed | CPT/HCPCS: 97597; 97598; A6021; A6253 ==

== ENCOUNTER → 2023-04-14 09:47 | Outpatient (BNVA) | payer MEDICARE, MEDICAID, SELFPAY | PROVIDERS: PCP Family Medicine; Visit Provider Thoracic Surgery (Cardiothoracic Vascular Surgery) | DX: I96 Gangrene, not elsewhere classified (principal); I87.2 Venous insufficiency (chronic) (peripheral); L97.822 Non-pressure chronic ulcer of other part of left lower leg with fat layer exposed | CPT/HCPCS: 97597; 97598; A6021; A6253 ==

== ENCOUNTER → 2023-04-22 10:02 | Outpatient (BNVA) | payer MEDICARE, MEDICAID, SELFPAY | PROVIDERS: PCP Family Medicine; Visit Provider Nurse Practitioner Family | DX: I96 Gangrene, not elsewhere classified (principal); I87.2 Venous insufficiency (chronic) (peripheral); L97.821 Non-pressure chronic ulcer of other part of left lower leg limited to breakdown of skin | CPT/HCPCS: 97597; 97598; A6021; A6253 ==

== ENCOUNTER → 2023-04-29 08:28 | Outpatient (BNVA) | payer MEDICARE, MEDICAID, SELFPAY | PROVIDERS: PCP Family Medicine; Visit Provider Nurse Practitioner Family | DX: I96 Gangrene, not elsewhere classified (principal); I87.2 Venous insufficiency (chronic) (peripheral); L97.821 Non-pressure chronic ulcer of other part of left lower leg limited to breakdown of skin | CPT/HCPCS: 97597; 97598; A6021; A6253 ==

== ENCOUNTER → 2023-05-05 09:06 | Outpatient (BNVA) | payer MEDICARE, MEDICAID, SELFPAY | PROVIDERS: PCP Family Medicine; Visit Provider Thoracic Surgery (Cardiothoracic Vascular Surgery) | DX: I96 Gangrene, not elsewhere classified (principal); I87.2 Venous insufficiency (chronic) (peripheral); L97.822 Non-pressure chronic ulcer of other part of left lower leg with fat layer exposed | CPT/HCPCS: 11042; 11045; A6021; A6253 ==

== ENCOUNTER → 2023-05-12 09:42 | Outpatient (BNVA) | payer MEDICARE, MEDICAID, SELFPAY | PROVIDERS: PCP Family Medicine; Visit Provider Nurse Practitioner Family | DX: I96 Gangrene, not elsewhere classified (principal); I87.2 Venous insufficiency (chronic) (peripheral); L97.821 Non-pressure chronic ulcer of other part of left lower leg limited to breakdown of skin | CPT/HCPCS: 97597; 97598; A6021; A6253 ==

== ENCOUNTER → 2023-05-26 09:47 | Outpatient (BNVA) | payer MEDICARE, MEDICAID, SELFPAY | PROVIDERS: PCP Family Medicine; Visit Provider Thoracic Surgery (Cardiothoracic Vascular Surgery) | DX: I96 Gangrene, not elsewhere classified (principal); I87.2 Venous insufficiency (chronic) (peripheral); L97.821 Non-pressure chronic ulcer of other part of left lower leg limited to breakdown of skin | CPT/HCPCS: 97597; 97598; A6021; A6253 ==

== ENCOUNTER → 2023-06-02 10:39 | Outpatient (BNVA) | payer MEDICARE, MEDICAID, SELFPAY | PROVIDERS: PCP Family Medicine; Visit Provider Thoracic Surgery (Cardiothoracic Vascular Surgery) | DX: I96 Gangrene, not elsewhere classified (principal); I87.2 Venous insufficiency (chronic) (peripheral); L97.821 Non-pressure chronic ulcer of other part of left lower leg limited to breakdown of skin | CPT/HCPCS: 97597; 97598; A6021; A6252 ==

== ENCOUNTER → 2023-06-09 10:23 | Outpatient (BNVA) | payer MEDICARE, MEDICAID, SELFPAY | PROVIDERS: PCP Family Medicine; Visit Provider Thoracic Surgery (Cardiothoracic Vascular Surgery) | DX: I96 Gangrene, not elsewhere classified (principal); I87.2 Venous insufficiency (chronic) (peripheral); L97.821 Non-pressure chronic ulcer of other part of left lower leg limited to breakdown of skin | CPT/HCPCS: 97597; 97598; A6021; A6251; A6252 ==

== ENCOUNTER → 2023-06-23 09:54 | Outpatient (BNVA) | payer MEDICARE, MEDICAID, SELFPAY | PROVIDERS: PCP Family Medicine; Visit Provider Thoracic Surgery (Cardiothoracic Vascular Surgery) | DX: I96 Gangrene, not elsewhere classified (principal); I87.2 Venous insufficiency (chronic) (peripheral); L97.822 Non-pressure chronic ulcer of other part of left lower leg with fat layer exposed | CPT/HCPCS: 11042; 11045; A6021; A6253 ==

== ENCOUNTER → 2023-06-30 09:37 | Outpatient (BNVA) | payer MEDICARE, MEDICAID, SELFPAY | PROVIDERS: PCP Family Medicine; Visit Provider Thoracic Surgery (Cardiothoracic Vascular Surgery) | DX: I96 Gangrene, not elsewhere classified (principal); I87.2 Venous insufficiency (chronic) (peripheral); L97.822 Non-pressure chronic ulcer of other part of left lower leg with fat layer exposed | CPT/HCPCS: 11042; 11045; A6021; A6251; A6252 ==

== ENCOUNTER → 2023-07-07 10:19 | Outpatient (BNVA) | payer MEDICARE, MEDICAID, SELFPAY | PROVIDERS: PCP Family Medicine; Visit Provider Thoracic Surgery (Cardiothoracic Vascular Surgery) | DX: I96 Gangrene, not elsewhere classified (principal); I87.2 Venous insufficiency (chronic) (peripheral); L97.821 Non-pressure chronic ulcer of other part of left lower leg limited to breakdown of skin | CPT/HCPCS: 97597; 97598; A6021; A6253 ==

== ENCOUNTER → 2023-07-16 09:45 | Outpatient (BNVA) | payer MEDICARE, MEDICAID, SELFPAY | PROVIDERS: PCP Family Medicine; Visit Provider Nurse Practitioner Family | DX: I96 Gangrene, not elsewhere classified (principal); I87.2 Venous insufficiency (chronic) (peripheral); L97.821 Non-pressure chronic ulcer of other part of left lower leg limited to breakdown of skin | CPT/HCPCS: 97597; 97598; A6021 ==

== ENCOUNTER → 2023-07-28 10:23 | Outpatient (BNVA) | payer MEDICARE, MEDICAID, SELFPAY | PROVIDERS: PCP Family Medicine; Visit Provider Thoracic Surgery (Cardiothoracic Vascular Surgery) | DX: I96 Gangrene, not elsewhere classified (principal); I87.2 Venous insufficiency (chronic) (peripheral); L97.822 Non-pressure chronic ulcer of other part of left lower leg with fat layer exposed; Z12.5 Encounter for screening for malignant neoplasm of prostate; Z13.6 Encounter for screening for cardiovascular disorders; Z79.899 Other long term (current) drug therapy | CPT/HCPCS: 11042; 11045; 80053; 80061; 81003; 82306; 83036; 84443; 85025; A6253; G0103 ==

== ENCOUNTER → 2023-08-04 09:44 | Outpatient (BNVA) | payer MEDICARE, MEDICAID, SELFPAY | PROVIDERS: PCP Family Medicine; Visit Provider Thoracic Surgery (Cardiothoracic Vascular Surgery) | DX: I96 Gangrene, not elsewhere classified (principal); I87.2 Venous insufficiency (chronic) (peripheral); L97.822 Non-pressure chronic ulcer of other part of left lower leg with fat layer exposed | CPT/HCPCS: 11042; 11045; A6253 ==

== ENCOUNTER 2023-08-18 12:11 | Outpatient (CLI) | payer MEDICARE, MEDICAID, SELFPAY ==
--- NOTE | 2023-08-18 14:45 | USCV_ITS ---
AlexsanderRayshawn krishna Age: 58 Gender: M : 1965 Exam Date: 08/18/2023 13:04 Ordering Phys: Jesus Rhodes MD (Andy) ([email or web address] [place]) Technologist: PRACHI Exam Location: [facility] [place] Indication: LT LE Swelling and Pain HISTORY: Lower extremity swelling. Lower extremity pain. Nonhealing sore on Lt ankle. PROCEDURES: Venous duplex imaging was performed in only the left lower extremity. The following venous structures were evaluated: common femoral vein, profunda vein, proximal portion of the greater saphenous vein, superficial femoral vein, and the popliteal vein. In addition, the posterior tibial and peroneal trunk were evaluated. Serial compression, augmentation maneuvers, and spectral Doppler flow evaluation were performed. FINDINGS: No evidence of DVT seen in any vessel visualized at this time. CONCLUSIONS No DVT left lower extremity. Dr. Yanna Arciniega DO (Electronically Signed) Final Date: 18 August 2023 14:01 S
== END 2023-08-18 12:12 | disposition home or self-care (01) ==
PROVIDERS: PCP Family Medicine; Visit Provider Thoracic Surgery (Cardiothoracic Vascular Surgery)
DX: M79.662 Pain in left lower leg (principal); M79.89 Other specified soft tissue disorders; I96 Gangrene, not elsewhere classified; I87.2 Venous insufficiency (chronic) (peripheral); L97.822 Non-pressure chronic ulcer of other part of left lower leg with fat layer exposed
CPT/HCPCS: 11042; 11045; 93971; A6252

== ENCOUNTER → 2023-08-26 09:48 | Outpatient (BNVA) | payer MEDICARE, MEDICAID, SELFPAY | PROVIDERS: PCP Family Medicine; Visit Provider Thoracic Surgery (Cardiothoracic Vascular Surgery) | DX: I96 Gangrene, not elsewhere classified (principal); I87.2 Venous insufficiency (chronic) (peripheral); L97.822 Non-pressure chronic ulcer of other part of left lower leg with fat layer exposed | CPT/HCPCS: 11042; 11045; A6197; A6253 ==

== ENCOUNTER → 2023-09-03 09:29 | Outpatient (BNVA) | payer MEDICARE, MEDICAID, SELFPAY | PROVIDERS: PCP Family Medicine; Visit Provider Thoracic Surgery (Cardiothoracic Vascular Surgery) | DX: I96 Gangrene, not elsewhere classified (principal); I87.2 Venous insufficiency (chronic) (peripheral); L97.821 Non-pressure chronic ulcer of other part of left lower leg limited to breakdown of skin | CPT/HCPCS: 97597; 97598; A6197; A6253 ==

== ENCOUNTER → 2023-09-10 09:43 | Outpatient (BNVA) | payer MEDICARE, MEDICAID, SELFPAY | PROVIDERS: PCP Family Medicine; Visit Provider Thoracic Surgery (Cardiothoracic Vascular Surgery) | DX: I96 Gangrene, not elsewhere classified (principal); I87.2 Venous insufficiency (chronic) (peripheral); L97.821 Non-pressure chronic ulcer of other part of left lower leg limited to breakdown of skin; L97.521 Non-pressure chronic ulcer of other part of left foot limited to breakdown of skin | CPT/HCPCS: 87070; 87077; 87176; 87186; 87205; 97597; 97598; A6251; A6253 ==

== ENCOUNTER → 2023-09-17 10:13 | Outpatient (BNVA) | payer MEDICARE, MEDICAID, SELFPAY | PROVIDERS: PCP Family Medicine; Visit Provider Thoracic Surgery (Cardiothoracic Vascular Surgery) | DX: I87.2 Venous insufficiency (chronic) (peripheral) (principal); L97.821 Non-pressure chronic ulcer of other part of left lower leg limited to breakdown of skin; Z09 Encounter for follow-up examination after completed treatment for conditions other than malignant neoplasm | CPT/HCPCS: 97597; 97598; A6253 ==

== ENCOUNTER → 2023-09-24 10:41 | Outpatient (BNVA) | payer MEDICARE, MEDICAID, SELFPAY | PROVIDERS: PCP Family Medicine; Visit Provider Thoracic Surgery (Cardiothoracic Vascular Surgery) | DX: I96 Gangrene, not elsewhere classified (principal); I87.2 Venous insufficiency (chronic) (peripheral); L97.821 Non-pressure chronic ulcer of other part of left lower leg limited to breakdown of skin | CPT/HCPCS: 97597; 97598; A6253 ==

== ENCOUNTER → 2023-10-01 09:47 | Outpatient (BNVA) | payer MEDICARE, MEDICAID, SELFPAY | PROVIDERS: PCP Family Medicine; Visit Provider Thoracic Surgery (Cardiothoracic Vascular Surgery) | DX: I96 Gangrene, not elsewhere classified (principal); I87.2 Venous insufficiency (chronic) (peripheral); L97.821 Non-pressure chronic ulcer of other part of left lower leg limited to breakdown of skin | CPT/HCPCS: 97597; 97598; A6253 ==

== ENCOUNTER → 2023-10-08 10:27 | Outpatient (BNVA) | payer MEDICARE, MEDICAID, SELFPAY | PROVIDERS: PCP Family Medicine; Visit Provider Thoracic Surgery (Cardiothoracic Vascular Surgery) | DX: I96 Gangrene, not elsewhere classified (principal); I87.2 Venous insufficiency (chronic) (peripheral); L97.821 Non-pressure chronic ulcer of other part of left lower leg limited to breakdown of skin | CPT/HCPCS: 97597; 97598; A6253 ==

== ENCOUNTER → 2023-10-15 10:29 | Outpatient (BNVA) | payer MEDICARE, MEDICAID, SELFPAY | PROVIDERS: PCP Family Medicine; Visit Provider Thoracic Surgery (Cardiothoracic Vascular Surgery) | DX: I96 Gangrene, not elsewhere classified (principal); I87.2 Venous insufficiency (chronic) (peripheral); L97.821 Non-pressure chronic ulcer of other part of left lower leg limited to breakdown of skin | CPT/HCPCS: 97597; 97598; A6253 ==

== ENCOUNTER → 2023-10-22 10:37 | Outpatient (BNVA) | payer MEDICARE, MEDICAID, SELFPAY | PROVIDERS: PCP Family Medicine; Visit Provider Thoracic Surgery (Cardiothoracic Vascular Surgery) | DX: I96 Gangrene, not elsewhere classified (principal); I87.2 Venous insufficiency (chronic) (peripheral); L97.821 Non-pressure chronic ulcer of other part of left lower leg limited to breakdown of skin | CPT/HCPCS: 97597; 97598; A6253 ==

== ENCOUNTER → 2023-10-29 10:50 | Outpatient (BNVA) | payer MEDICARE, MEDICAID, SELFPAY | PROVIDERS: PCP Family Medicine; Visit Provider Thoracic Surgery (Cardiothoracic Vascular Surgery) | DX: I96 Gangrene, not elsewhere classified (principal); L97.821 Non-pressure chronic ulcer of other part of left lower leg limited to breakdown of skin; I87.2 Venous insufficiency (chronic) (peripheral) | CPT/HCPCS: 97597; 97598; A6197; A6253 ==

== ENCOUNTER → 2023-11-05 10:06 | Outpatient (BNVA) | payer MEDICARE, MEDICAID, SELFPAY | PROVIDERS: PCP Family Medicine; Visit Provider Thoracic Surgery (Cardiothoracic Vascular Surgery) | DX: I96 Gangrene, not elsewhere classified (principal); I87.2 Venous insufficiency (chronic) (peripheral); L97.821 Non-pressure chronic ulcer of other part of left lower leg limited to breakdown of skin | CPT/HCPCS: 97597; 97598; A6197; A6252; A6253 ==

== ENCOUNTER → 2023-11-12 10:15 | Outpatient (BNVA) | payer MEDICARE, MEDICAID, SELFPAY | PROVIDERS: PCP Family Medicine; Visit Provider Thoracic Surgery (Cardiothoracic Vascular Surgery) | DX: I96 Gangrene, not elsewhere classified (principal); I87.2 Venous insufficiency (chronic) (peripheral); L97.821 Non-pressure chronic ulcer of other part of left lower leg limited to breakdown of skin | CPT/HCPCS: 97597; 97598; A6197; A6253 ==

== ENCOUNTER → 2023-11-19 10:18 | Outpatient (BNVA) | payer MEDICARE, MEDICAID, SELFPAY | PROVIDERS: PCP Family Medicine; Visit Provider Thoracic Surgery (Cardiothoracic Vascular Surgery) | DX: I96 Gangrene, not elsewhere classified (principal); I87.2 Venous insufficiency (chronic) (peripheral); L97.821 Non-pressure chronic ulcer of other part of left lower leg limited to breakdown of skin | CPT/HCPCS: 97597; 97598; A6197; A6253 ==

== ENCOUNTER → 2023-11-26 10:12 | Outpatient (BNVA) | payer MEDICARE, MEDICAID, SELFPAY | PROVIDERS: PCP Family Medicine; Visit Provider Thoracic Surgery (Cardiothoracic Vascular Surgery) | DX: I96 Gangrene, not elsewhere classified (principal); I87.2 Venous insufficiency (chronic) (peripheral); L97.821 Non-pressure chronic ulcer of other part of left lower leg limited to breakdown of skin | CPT/HCPCS: 97597; 97598; A6197 ==

== ENCOUNTER → 2023-12-03 10:59 | Outpatient (BNVA) | payer MEDICARE, MEDICAID, SELFPAY | PROVIDERS: PCP Family Medicine; Visit Provider Thoracic Surgery (Cardiothoracic Vascular Surgery) | DX: I96 Gangrene, not elsewhere classified (principal); I87.2 Venous insufficiency (chronic) (peripheral); L97.821 Non-pressure chronic ulcer of other part of left lower leg limited to breakdown of skin | CPT/HCPCS: 97597; 97598; A6197; A6253 ==

== ENCOUNTER → 2023-12-10 10:08 | Outpatient (BNVA) | payer MEDICARE, MEDICAID, SELFPAY | PROVIDERS: PCP Family Medicine; Visit Provider Thoracic Surgery (Cardiothoracic Vascular Surgery) | DX: I96 Gangrene, not elsewhere classified (principal); I87.2 Venous insufficiency (chronic) (peripheral); L97.821 Non-pressure chronic ulcer of other part of left lower leg limited to breakdown of skin | CPT/HCPCS: 97597; 97598 ==

== ENCOUNTER → 2023-12-17 10:31 | Outpatient (BNVA) | payer MEDICARE, MEDICAID, SELFPAY | PROVIDERS: PCP Family Medicine; Visit Provider Thoracic Surgery (Cardiothoracic Vascular Surgery) | DX: I96 Gangrene, not elsewhere classified (principal); I87.2 Venous insufficiency (chronic) (peripheral); L97.821 Non-pressure chronic ulcer of other part of left lower leg limited to breakdown of skin | CPT/HCPCS: 97597; 97598; A6253 ==

== ENCOUNTER → 2023-12-24 10:31 | Outpatient (BNVA) | payer MEDICARE, MEDICAID, SELFPAY | PROVIDERS: PCP Family Medicine; Visit Provider Thoracic Surgery (Cardiothoracic Vascular Surgery) | DX: I96 Gangrene, not elsewhere classified (principal); I87.2 Venous insufficiency (chronic) (peripheral); L97.821 Non-pressure chronic ulcer of other part of left lower leg limited to breakdown of skin | CPT/HCPCS: 97597; 97598 ==

== ENCOUNTER → 2023-12-31 10:48 | Outpatient (BNVA) | payer MEDICARE, MEDICAID, SELFPAY | PROVIDERS: PCP Family Medicine; Visit Provider Thoracic Surgery (Cardiothoracic Vascular Surgery) | DX: I96 Gangrene, not elsewhere classified (principal); I87.2 Venous insufficiency (chronic) (peripheral); L97.821 Non-pressure chronic ulcer of other part of left lower leg limited to breakdown of skin | CPT/HCPCS: 97597; 97598 ==

== ENCOUNTER → 2024-01-07 10:33 | Outpatient (BNVA) | payer MEDICARE, MEDICAID, SELFPAY | PROVIDERS: PCP Family Medicine; Visit Provider Thoracic Surgery (Cardiothoracic Vascular Surgery) | DX: I96 Gangrene, not elsewhere classified (principal); I87.2 Venous insufficiency (chronic) (peripheral); L97.821 Non-pressure chronic ulcer of other part of left lower leg limited to breakdown of skin | CPT/HCPCS: 97597; 97598 ==

== ENCOUNTER 2024-01-14 11:05 | Emergency (ER) | payer MEDICARE, MEDICAID, SELFPAY ==
[2024-01-14 11:11] VITALS: BP 137/75; PULSE 116; RESP 20; TEMP 36.9; O2SAT 94
[2024-01-14 12:06] VITALS: BP 160/81; PULSE 117; O2SAT 93
--- NOTE | 2024-01-14 12:13 | XR_ITS ---
WS: [id number] Exam: XR hand RT min 3V* [id number] Date/Time of Exam: 01/14/2024 12:15 PM Reason For Exam: hand pain, possible trauma No fracture or dislocation. The joints are preserved. No soft tissue foreign bodies. XR/XR hand RT min 3V* [id number] IMPRESSION: 1. Negative RIGHT hand.
[2024-01-14 12:33] LABS: Basophils % 0.1 %; Hematocrit 41.9 % (37-53); Lymphocytes # 1.1 10^3/uL (0.8-4.8); Lymphocytes % 7.7 %; Mean Corpuscular Volume 93.7 fl (82-101); Mean Platelet Volume 11.5 fL (7.4-10.4); Monocytes # 1.7 10^3/uL (0.2-0.9); Monocytes % 12.4 %; Neutrophils % 79.2 %; Nucleated Red Blood Cells % 0 %; Platelet Count 160 10^3/cmm (157-399); Red Blood Count 4.47 10^6/uL (3.85-5.65); Red Cell Distribution Width 15.3 % (12.1-15.1); White Blood Count 13.89 10^3/uL (3.29-11.43)
[2024-01-14 12:53] LABS: Alanine Aminotransferase 48 U/L (0-41); Albumin Level 3.3 g/dL (3.5-5.2); Alkaline Phosphatase 105 U/L (40-130); Anion Gap 18.9 (5-19); Aspartate Amino Transferase 71 U/L (0-40); Blood Urea Nitrogen 18 mg/dL (8-23); C Reactive Protein 297.5 mg/L (0.0-4.9); Calcium 8.7 mg/dL (8.5-10.5); Carbon Dioxide 21 mmol/L (22-29); Chloride 102 mmol/L (98-107); Creatinine Clr Calc Pharmacy 105.7433; Globulin 4.4 g/dL (1.3-4.6); Glomerular Filtration Rate 61.8 mL/min (90-130); Glucose 129 mg/dL (65-115); Osmolality Calculated 290 mOsm/kg (285-295); Potassium 3.9 mmol/L (3.5-5.1); Sodium 138 mmol/L (136-145); Total Bilirubin 2.7 mg/dL (0.15-1.2); Total Protein 7.7 g/dL (6.6-8.7)
[2024-01-14 12:54] LABS: Erythrocyte Sedimentation Rate 95 mm/hr (0-10)
--- NOTE | 2024-01-14 13:08 | W.ED.EXTPRO ---
HPI - Extremity Problem General: Chief complaint: Extremity Injury, Upper Stated complaint: Right arm is paralyzed Time Seen by Provider: 01/14/24 12:07 History of Present Illness: 58-year-old man with a history of chronic left lower extremity wound that he follows with wound care who presents to the emergency room with a right hand pain and swelling and redness. He went to the wound care center and they told him to go the emergency room they would not see him until he was treated for this. Per the patient. Family states he did have a fall and was down on the ground for a while about 4 5 days ago, however the patient adamantly says this has nothing to do with that. No fevers. Moves all extremities well. Review of Systems Narrative: Constitutional symptoms: Negative except as documented in HPI. Skin symptoms: Negative except as documented in HPI. Eye symptoms: Negative except as documented in HPI. ENMT symptoms: Negative except as documented in HPI. Respiratory symptoms: Negative except as documented in HPI. Cardiovascular symptoms: Negative except as documented in HPI. Gastrointestinal symptoms: Negative except as documented in HPI. Genitourinary symptoms: Negative except as documented in HPI. Musculoskeletal symptoms: Negative except as documented in HPI. Neurologic symptoms: Negative except as documented in HPI. Psychiatric symptoms: Negative except as documented in HPI. Endocrine symptoms: Negative except as documented in HPI. [facility] ED PFSH: Medical History (Updated 01/14/24 @ 13:06 by Vero Chen MD) Encounter for screening for cardiovascular disorders Adult general medical exam Chronic wound of extremity Cellulitis No significant past medical history Surgical History No significant past surgical history Physical Exam Narrative: EXAM NARRATIVE: General: Alert, no acute distress. Skin: Warm, dry. On the dorsum of the right hand from the knuckles down to the wrist there is an area of edema erythema and warmth. This is consistent with a cellulitis. Head: Normocephalic, atraumatic. Neck: Supple, trachea midline. Eye: Extraocular movements are intact. Ears, nose, mouth and throat: mucosa moist. Cardiovascular: Regular, Normal peripheral perfusion. Respiratory: Lungs are clear to auscultation, respirations are non-labored, breath sounds are equal, Symmetrical chest wall expansion. Gastrointestinal: Soft, Nontender, Non distended Musculoskeletal: Normal ROM, no deformity. Neurological: Alert and oriented, No focal neurological deficit observed. Psychiatric: Cooperative, appropriate mood & affect. Course Vital Signs: Vital signs: Vital Signs Temperature 98.4 F 01/14/24 11:11 Pulse Rate 117 H 01/14/24 12:06 Respiratory Rate 20 H 01/14/24 11:11 Blood Pressure 160/81 01/14/24 12:06 Pulse Oximetry 93 01/14/24 12:06 Oxygen Delivery Me thod Room Air 01/14/24 12:06 MDM - Extremity (Nontraumatic) Medical Decision Making Medical decision making: Differential diagnosis including but not limited to and based on the above HPI, review of systems and physical exam: Believe this is a cellulitis but an x-ray was ordered to rule out any kind of fractures that might could have occurred in his fall. Basic lab work to evaluate the severity of the infection. White count, ESR and CRP Orders placed to evaluate differential diagnosis based on the above differential, HPI and physical exam Lab Review: Laboratory results were reviewed and interpreted by myself the emergency room physician. White count is mildly elevated at 14,000. CRP is 300 and ESR is 95. This is likely secondary to the wound on his foot. I reviewed the patient's medical record. Reexamination: Patient remained stable. Cellulitis has not spread significantly since my first exam. No altered mental status. No increased work of breathing. Patient is a little bit tachycardic and does have an elevated white count. However I do not believe he is septic. He has been tachycardic most of his visits in the past. I think he may be a little bit anxious. The severity of this cellulitis is minimal and I do not believe because of sepsis and he has not had any fevers. Assessment and plan: Cellulitis of the hand -Because of the location on the hand and his history of a wound on his foot I am giving him a dose of broad-spectrum antibiotics here. Home on clindamycin - Discharged home - Discussed plan with patient. Answered any questions. - Evaluation and treatment of this problem were appropriate in the emergency setting. Lab Data 01/14/24 12:25 01/14/24 12:25 Radiology Impressions Hand X-Ray 01/14/24 12:13 IMPRESSION: 1. Negative RIGHT hand. Laboratory Results WBC 13.89 10^3/uL (3.29-11.43) H 01/14/24 12:25 RBC 4.47 10^6/uL (3.85-5.65) 01/14/24 12:25 Hgb 13.40 g/dL (11.27-16.99) 01/14/24 12:25 Hct 41.9 % (37-53) 01/14/24 12:25 MCV 93.7 fl (82-101) 01/14/24 12:25 MCH 30.0 pg (27-33) 01/14/24 12:25 MCHC 32.0 g/dL (30-55) 01/14/24 12:25 RDW 15.3 % (12.1-15.1) H 01/14/24 12:25 Plt Count 160 10^3/cmm (157-399) 01/14/24 12:25 MPV 11.5 fL (7.4-10.4) H 01/14/24 12:25 Neut % (Auto) 79.2 % 01/14/24 12:25 Lymph % (Auto) 7.7 % 01/14/24 12:25 Hinds % (Auto) 12.4 % 01/14/24 12:25 Eos % (Auto) 0.0 % 01/14/24 12:25 Baso % (Auto) 0.1 % 01/14/24 12:25 Neut # (Auto) 11.00 10^3/uL (1.8-7.7) H 01/14/24 12:25 Lymph # (Auto) 1.1 10^3/uL (0.8-4.8) 01/14/24 12:25 Hinds # (Auto) 1.7 10^3/uL (0.2-0.9) H 01/14/24 12:25 Eos # (Auto) 0.0 10^3/uL (0.0-0.8) 01/14/24 12:25 Baso # (Auto) 0.0 10^3/uL (0.0-0.1) 01/14/24 12:25 Nucleated RBC % (auto) 0 % 01/14/24 12:25 Nucleated RBCs # 0.0 /100WBC 01/14/24 12:25 ESR 95 mm/hr (0-10) H 01/14/24 12:25 Sodium 138 mmol/L (136-145) 01/14/24 12:25 Potassium 3.9 mmol/L (3.5-5.1) 01/14/24 12:25 Chloride 102 mmol/L (98-107) 01/14/24 12:25 Carbon Dioxide 21 mmol/L (22-29) L 01/14/24 12:25 Anion Gap 18.9 (5-19) 01/14/24 12:25 BUN 18 mg/dL (8-23) 01/14/24 12:25 Creatinine 1.2 mg/dL (0.7-1.2) 01/14/24 12:25 GFR Calculation 61.8 mL/min (90-130) L 01/14/24 12:25 Glucose 129 mg/dL (65-115) H 01/14/24 12:25 Calculated Osmolality 290 mOsm/kg (285-295) 01/14/24 12:25 Uric Acid 7.0 mg/dL (3.4-7.0) 01/14/24 12:25 Calcium 8.7 mg/dL (8.5-10.5) 01/14/24 12:25 Total Bilirubin 2.7 mg/dL (0.15-1.2) H 01/14/24 12:25 AST 71 U/L (0-40) H 01/14/24 12:25 ALT 48 U/L (0-41) H 01/14/24 12:25 Alkaline Phosphatase 105 U/L (40-130) 01/14/24 12:25 C-Reactive Protein 297.5 mg/L (0.0-4.9) H 01/14/24 12:25 Total Protein 7.7 g/dL (6.6-8.7) 01/14/24 12:25 Albumin 3.3 g/dL (3.5-5.2) L 01/14/24 12:25 Globulin 4.4 g/dL (1.3-4.6) 01/14/24 12:25 All radiology interpretation(s) finalized by discharge Discharge Plan Discharge Patient Disposition: Home Clinical Impression: Cellulitis of right hand Condition: Stable Prescriptions: New clindamycin HCl 300 mg capsule 600 mg PO Q8H 10 Days Qty: 60 0RF Discharge Orders: Discharge ED (Routine); Ordered 01/14/24 Ordered By: Vero Chen Referrals: Robb Haley MD [Primary Care Provider] - 4-7 days Discharge Diet: Usual diet Discharge Activity: Increase activity as tolerated Patient Instructions: Cellulitis (ED) Activity Restrictions/Additional Instructions: Thank you for choosing [facility] for your healthcare needs today. Please realize this is an emergency room and that we are providing you with a medical screening exam and this may not be complete and all inclusive of all the testing and or work up that you may need to determine your ailment or severity of your illness. You have been screened and evaluated and felt safe for discharge. Health conditions do change or evolve sometimes and as such it is important that you follow up with your Primary Doctor to be re checked, 3-5 days is a general good time frame for follow up. You are always welcome to return to the ED for re assessment if your symptoms are worsening or you have new concerns Coding Level of Care Code ED [employer] Operator for Deanna Josue
[2024-01-14] MEDS: cefepime 2,000 MG in sodium chloride 0.9% (plus) 50 ML 100 MG IV (13:32)
[2024-01-14] MEDS: linezolid premix 600 MG/300 ML PREMIX 300 MG IV (14:13)
[2024-01-14 14:17] VITALS: BP 139/90; PULSE 107; O2SAT 96
[2024-01-14 15:39] VITALS: BP 139/90; PULSE 107; RESP 20; TEMP 36.9; O2SAT 96
== END 2024-01-14 15:40 | disposition home or self-care (01) ==
PROVIDERS: Emergency Provider Emergency Medicine; PCP Family Medicine
DX: L03.113 Cellulitis of right upper limb (principal)
CPT/HCPCS: 36415; 73130; 80053; 84550; 85025; 85651; 86140; 96365; 99284; J0692; J2020

== ENCOUNTER → 2024-01-21 09:53 | Outpatient (BNVA) | payer MEDICARE, MEDICAID, SELFPAY | PROVIDERS: PCP Family Medicine; Visit Provider Thoracic Surgery (Cardiothoracic Vascular Surgery) | DX: I96 Gangrene, not elsewhere classified (principal); I87.2 Venous insufficiency (chronic) (peripheral); L97.821 Non-pressure chronic ulcer of other part of left lower leg limited to breakdown of skin | CPT/HCPCS: 97597; 97598; A6253 ==

== ENCOUNTER → 2024-01-28 15:00 | Outpatient (CLI) | payer MEDICARE, MEDICAID, SELFPAY ==
--- NOTE | 2024-01-28 15:45 | USCV_ITS ---
Rayshawn Zuñiga Age: 59 Gender: M : 1965 Exam Date: 01/28/2024 15:08 Ordering Phys: Tom Maurer Technologist: CT Exam Location: [facility] – [place] Indication: swollen hand PROCEDURES: Venous duplex imaging was performed in only the right upper extremity. In addition, the radial vein and ulnar vein. FINDINGS: no dvt CONCLUSIONS No evidence of thrombus of the right upper extremity veins. Arjun Mitchell MD (Electronically Signed) Final Date: 28 January 2024 16:01 S
== END | disposition home or self-care (01) ==
LOC: RAD 15:00
PROVIDERS: PCP Family Medicine; Visit Provider Nurse Practitioner Family
DX: I82.601 Acute embolism and thrombosis of unspecified veins of right upper extremity (principal)
CPT/HCPCS: 93971

== ENCOUNTER → 2024-02-04 12:17 | Outpatient (BNVA) | payer MEDICARE, MEDICAID, SELFPAY | PROVIDERS: PCP Family Medicine; Visit Provider Nurse Practitioner Family | DX: S69.91XA Unspecified injury of right wrist, hand and finger(s), initial encounter (principal); X58.XXXA Exposure to other specified factors, initial encounter; I87.2 Venous insufficiency (chronic) (peripheral); L97.821 Non-pressure chronic ulcer of other part of left lower leg limited to breakdown of skin | CPT/HCPCS: 73110; 97597; 97598 ==

== ENCOUNTER → 2024-02-11 09:56 | Outpatient (BNVA) | payer MEDICARE, MEDICAID, SELFPAY | PROVIDERS: PCP Family Medicine; Visit Provider Thoracic Surgery (Cardiothoracic Vascular Surgery) | DX: I96 Gangrene, not elsewhere classified (principal); I87.2 Venous insufficiency (chronic) (peripheral); L97.421 Non-pressure chronic ulcer of left heel and midfoot limited to breakdown of skin | CPT/HCPCS: 97597; 97598 ==

== ENCOUNTER → 2024-02-18 09:56 | Outpatient (BNVA) | payer MEDICARE, MEDICAID, SELFPAY | PROVIDERS: PCP Family Medicine; Visit Provider Thoracic Surgery (Cardiothoracic Vascular Surgery) | DX: I96 Gangrene, not elsewhere classified (principal); I87.2 Venous insufficiency (chronic) (peripheral); L97.821 Non-pressure chronic ulcer of other part of left lower leg limited to breakdown of skin | CPT/HCPCS: 97597; 97598; A6253 ==

== ENCOUNTER → 2024-02-25 09:48 | Outpatient (BNVA) | payer MEDICARE, MEDICAID, SELFPAY | PROVIDERS: PCP Family Medicine; Visit Provider Thoracic Surgery (Cardiothoracic Vascular Surgery) | DX: I96 Gangrene, not elsewhere classified (principal); I87.2 Venous insufficiency (chronic) (peripheral); L97.821 Non-pressure chronic ulcer of other part of left lower leg limited to breakdown of skin | CPT/HCPCS: 97597; 97598 ==

== ENCOUNTER → 2024-03-03 08:32 | Outpatient (BNVA) | payer MEDICARE, MEDICAID, SELFPAY | PROVIDERS: PCP Family Medicine; Visit Provider Thoracic Surgery (Cardiothoracic Vascular Surgery) | DX: I96 Gangrene, not elsewhere classified (principal); I87.2 Venous insufficiency (chronic) (peripheral); L97.821 Non-pressure chronic ulcer of other part of left lower leg limited to breakdown of skin | CPT/HCPCS: 97597; 97598; A6197; A6252 ==

== ENCOUNTER → 2024-03-10 08:14 | Outpatient (BNVA) | payer MEDICARE, MEDICAID, SELFPAY | PROVIDERS: PCP Family Medicine; Visit Provider Thoracic Surgery (Cardiothoracic Vascular Surgery) | DX: I96 Gangrene, not elsewhere classified (principal); I87.2 Venous insufficiency (chronic) (peripheral); L97.821 Non-pressure chronic ulcer of other part of left lower leg limited to breakdown of skin | CPT/HCPCS: 97597; 97598; A6197; A6253 ==

== ENCOUNTER → 2024-03-17 08:15 | Outpatient (BNVA) | payer MEDICARE, MEDICAID, SELFPAY | PROVIDERS: PCP Family Medicine; Visit Provider Thoracic Surgery (Cardiothoracic Vascular Surgery) | DX: I96 Gangrene, not elsewhere classified (principal); I87.2 Venous insufficiency (chronic) (peripheral); L97.821 Non-pressure chronic ulcer of other part of left lower leg limited to breakdown of skin | CPT/HCPCS: 97597; 97598 ==

== ENCOUNTER → 2024-03-24 08:18 | Outpatient (BNVA) | payer MEDICARE, MEDICAID, SELFPAY | PROVIDERS: PCP Family Medicine; Visit Provider Thoracic Surgery (Cardiothoracic Vascular Surgery) | DX: I96 Gangrene, not elsewhere classified (principal); I87.2 Venous insufficiency (chronic) (peripheral); L97.821 Non-pressure chronic ulcer of other part of left lower leg limited to breakdown of skin | CPT/HCPCS: 97597; 97598; A6197 ==

== ENCOUNTER → 2024-03-31 08:10 | Outpatient (BNVA) | payer MEDICARE, MEDICAID, SELFPAY | PROVIDERS: PCP Family Medicine; Visit Provider Thoracic Surgery (Cardiothoracic Vascular Surgery) | DX: I96 Gangrene, not elsewhere classified (principal); I87.2 Venous insufficiency (chronic) (peripheral); L97.821 Non-pressure chronic ulcer of other part of left lower leg limited to breakdown of skin | CPT/HCPCS: 97597; 97598; A6197; A6252 ==

== ENCOUNTER → 2024-04-12 09:23 | Outpatient (BNVA) | payer MEDICARE, MEDICAID, SELFPAY | PROVIDERS: PCP Family Medicine; Visit Provider Thoracic Surgery (Cardiothoracic Vascular Surgery) | DX: I96 Gangrene, not elsewhere classified (principal); I87.2 Venous insufficiency (chronic) (peripheral); L97.821 Non-pressure chronic ulcer of other part of left lower leg limited to breakdown of skin | CPT/HCPCS: 87070; 87176; 87205; 97597; 97598; A6197; A6252 ==

== ENCOUNTER → 2024-04-19 08:52 | Outpatient (BNVA) | payer MEDICARE, MEDICAID, SELFPAY | PROVIDERS: PCP Family Medicine; Visit Provider Thoracic Surgery (Cardiothoracic Vascular Surgery) | DX: I96 Gangrene, not elsewhere classified (principal); I87.2 Venous insufficiency (chronic) (peripheral); L97.821 Non-pressure chronic ulcer of other part of left lower leg limited to breakdown of skin | CPT/HCPCS: 97597; 97598; A6197; A6252 ==

== ENCOUNTER → 2024-04-26 09:39 | Outpatient (BNVA) | payer MEDICARE, MEDICAID, SELFPAY | PROVIDERS: PCP Family Medicine; Visit Provider Thoracic Surgery (Cardiothoracic Vascular Surgery) | DX: I96 Gangrene, not elsewhere classified (principal); I87.2 Venous insufficiency (chronic) (peripheral); L97.821 Non-pressure chronic ulcer of other part of left lower leg limited to breakdown of skin | CPT/HCPCS: 97597; 97598; A6197; A6251; A6253 ==

== ENCOUNTER → 2024-05-03 08:29 | Outpatient (BNVA) | payer MEDICARE, MEDICAID, SELFPAY | PROVIDERS: PCP Family Medicine; Visit Provider Thoracic Surgery (Cardiothoracic Vascular Surgery) | DX: I96 Gangrene, not elsewhere classified (principal); I87.2 Venous insufficiency (chronic) (peripheral); L97.821 Non-pressure chronic ulcer of other part of left lower leg limited to breakdown of skin | CPT/HCPCS: 29581; 97597; 97598; A6197; A6253 ==

== ENCOUNTER → 2024-05-10 09:40 | Outpatient (BNVA) | payer MEDICARE, MEDICAID, SELFPAY | PROVIDERS: PCP Family Medicine; Visit Provider Thoracic Surgery (Cardiothoracic Vascular Surgery) | DX: I96 Gangrene, not elsewhere classified (principal); I87.2 Venous insufficiency (chronic) (peripheral); L97.821 Non-pressure chronic ulcer of other part of left lower leg limited to breakdown of skin | CPT/HCPCS: 29581; 97597; 97598; A6021; A6252 ==

== ENCOUNTER → 2024-05-17 09:46 | Outpatient (BNVA) | payer MEDICARE, MEDICAID, SELFPAY | PROVIDERS: PCP Family Medicine; Visit Provider Thoracic Surgery (Cardiothoracic Vascular Surgery) | DX: I96 Gangrene, not elsewhere classified (principal); I87.2 Venous insufficiency (chronic) (peripheral); L97.821 Non-pressure chronic ulcer of other part of left lower leg limited to breakdown of skin | CPT/HCPCS: 97597; 97598; A6197; A6252 ==

== ENCOUNTER 2024-05-19 09:14 | Outpatient (CLI) | payer MEDICARE, MEDICAID, SELFPAY ==
--- NOTE | 2024-05-19 09:45 | USCV_ITS ---
Rayshawn Zuñiga Age: 59 Gender: M : 1965 Exam Date: 05/19/2024 10:00 Ordering Phys: Jesus Rhodes MD (Andy) ([email or web address]) Technologist: USR Exam Location: [facility] – [place] Indication: HISTORY: PROCEDURES: FINDINGS: Patent common femoral, femoral and popliteal vein on the left side. Venous reflux was noted at the common femoral and femoral vein with a reflux time of 2.45 and 3.0 seconds respectively. The deep and the superficial veins are found to be easily compressible. Venous reflux were noted at the saphenofemoral junction, distal saphenofemoral junction and proximal greater saphenous vein segments on the left side. The reflux time by 2.2, 1.82 and 1.86 seconds respectively. The venous segments were measuring 1.0, 0.62 and 0.46 cm respectively at these levels. These venous segments were at a depth of 3.7, 0.92 and 1.64 cm from the surface CONCLUSIONS 1. No evidence of DVT or superficial vein thrombosis 2. Significant venous reflux of greater than 1000 ms were noted in the deep veins at the level of the common femoral and femoral veins. 3. Significant venous reflux of greater than 500 ms were noted at the saphenofemoral junction, distal to saphenofemoral and proximal segments of the greater saphenous vein, on the left side. The reflux time, venous dimension and depth from the surface are as mentioned above This study was performed only on the left side Dr Kelvin Mcbride MD [facility] (Electronically Signed) Final Date: 20 May 2024 09:47 S
== END 2024-05-19 09:15 | disposition home or self-care (01) ==
LOC: RAD 09:16
PROVIDERS: PCP Family Medicine; Visit Provider Thoracic Surgery (Cardiothoracic Vascular Surgery)
DX: I83.813 Varicose veins of bilateral lower extremities with pain (principal); L97.822 Non-pressure chronic ulcer of other part of left lower leg with fat layer exposed
CPT/HCPCS: 93971

== ENCOUNTER → 2024-05-24 09:58 | Outpatient (BNVA) | payer MEDICARE, MEDICAID, SELFPAY | PROVIDERS: PCP Family Medicine; Visit Provider Thoracic Surgery (Cardiothoracic Vascular Surgery) | DX: I96 Gangrene, not elsewhere classified (principal); I87.2 Venous insufficiency (chronic) (peripheral); L97.821 Non-pressure chronic ulcer of other part of left lower leg limited to breakdown of skin | CPT/HCPCS: 97597; 97598 ==

== ENCOUNTER → 2024-05-31 09:15 | Outpatient (BNVA) | payer MEDICARE, MEDICAID, SELFPAY | PROVIDERS: PCP Family Medicine; Visit Provider Thoracic Surgery (Cardiothoracic Vascular Surgery) | DX: I96 Gangrene, not elsewhere classified (principal); I87.2 Venous insufficiency (chronic) (peripheral); L97.822 Non-pressure chronic ulcer of other part of left lower leg with fat layer exposed | CPT/HCPCS: 29581; 87070; 87176; 87205; 97597; 97598; A6197; A6253 ==

== ENCOUNTER → 2024-06-07 09:31 | Outpatient (BNVA) | payer MEDICARE, MEDICAID, SELFPAY | PROVIDERS: PCP Family Medicine; Visit Provider Thoracic Surgery (Cardiothoracic Vascular Surgery) | DX: I96 Gangrene, not elsewhere classified (principal); I87.2 Venous insufficiency (chronic) (peripheral); L97.822 Non-pressure chronic ulcer of other part of left lower leg with fat layer exposed | CPT/HCPCS: 29581; 97597; 97598; A6197; A6253 ==

== ENCOUNTER → 2024-06-21 09:41 | Outpatient (BNVA) | payer MEDICARE, MEDICAID, SELFPAY | PROVIDERS: PCP Family Medicine; Visit Provider Thoracic Surgery (Cardiothoracic Vascular Surgery) | DX: I96 Gangrene, not elsewhere classified (principal); I87.2 Venous insufficiency (chronic) (peripheral); L97.821 Non-pressure chronic ulcer of other part of left lower leg limited to breakdown of skin | CPT/HCPCS: 97597; 97598; A6197; A6253 ==

== ENCOUNTER → 2024-06-28 07:55 | Outpatient (BNVA) | payer MEDICARE, MEDICAID, SELFPAY | PROVIDERS: PCP Family Medicine; Visit Provider Thoracic Surgery (Cardiothoracic Vascular Surgery) | DX: I96 Gangrene, not elsewhere classified (principal); I87.2 Venous insufficiency (chronic) (peripheral); L97.821 Non-pressure chronic ulcer of other part of left lower leg limited to breakdown of skin | CPT/HCPCS: 97597; 97598; A6197; A6253 ==

== ENCOUNTER → 2024-07-02 08:39 | Outpatient (BNVA) | payer MEDICARE, MEDICAID, SELFPAY | PROVIDERS: PCP Family Medicine; Visit Provider Thoracic Surgery (Cardiothoracic Vascular Surgery) | DX: I87.2 Venous insufficiency (chronic) (peripheral) (principal); L97.822 Non-pressure chronic ulcer of other part of left lower leg with fat layer exposed; L03.116 Cellulitis of left lower limb; Z91.198 Patient's noncompliance with other medical treatment and regimen for other reason | CPT/HCPCS: 97606; A6237; A6250 ==

== ENCOUNTER → 2024-07-06 13:51 | Outpatient (BNVA) | payer MEDICARE, MEDICAID, SELFPAY | PROVIDERS: PCP Family Medicine; Visit Provider Thoracic Surgery (Cardiothoracic Vascular Surgery) | DX: I87.2 Venous insufficiency (chronic) (peripheral) (principal); L97.822 Non-pressure chronic ulcer of other part of left lower leg with fat layer exposed; L03.116 Cellulitis of left lower limb | CPT/HCPCS: A6237; A6250 ==

== ENCOUNTER → 2024-07-12 14:13 | Outpatient (BNVA) | payer MEDICARE, MEDICAID, SELFPAY | PROVIDERS: PCP Family Medicine; Visit Provider Thoracic Surgery (Cardiothoracic Vascular Surgery) | DX: I96 Gangrene, not elsewhere classified (principal); I87.2 Venous insufficiency (chronic) (peripheral); L97.821 Non-pressure chronic ulcer of other part of left lower leg limited to breakdown of skin | CPT/HCPCS: 97597; 97598 ==

== ENCOUNTER → 2024-07-20 13:56 | Outpatient (BNVA) | payer MEDICARE, MEDICAID, SELFPAY | PROVIDERS: PCP Family Medicine; Visit Provider Thoracic Surgery (Cardiothoracic Vascular Surgery) | DX: I96 Gangrene, not elsewhere classified (principal); I87.2 Venous insufficiency (chronic) (peripheral); L97.821 Non-pressure chronic ulcer of other part of left lower leg limited to breakdown of skin | CPT/HCPCS: 97597; 97598; 97605; A6237; A6250 ==

== ENCOUNTER → 2024-07-22 12:37 | Outpatient (BNVA) | payer MEDICARE, MEDICAID, SELFPAY | PROVIDERS: PCP Family Medicine; Referring Provider Thoracic Surgery (Cardiothoracic Vascular Surgery); Visit Provider Internal Medicine | DX: I48.91 Unspecified atrial fibrillation (principal); I45.10 Unspecified right bundle-branch block; R94.31 Abnormal electrocardiogram [ECG] [EKG]; I87.2 Venous insufficiency (chronic) (peripheral); I89.0 Lymphedema, not elsewhere classified | CPT/HCPCS: 93005; 93010; 99204 ==

== ENCOUNTER → 2024-07-27 09:33 | Outpatient (BNVA) | payer MEDICARE, MEDICAID, SELFPAY | PROVIDERS: PCP Family Medicine; Visit Provider Thoracic Surgery (Cardiothoracic Vascular Surgery) | DX: I96 Gangrene, not elsewhere classified (principal); I87.2 Venous insufficiency (chronic) (peripheral); L97.821 Non-pressure chronic ulcer of other part of left lower leg limited to breakdown of skin | CPT/HCPCS: 97597; 97598; 97605; A6237; A6250 ==

== ENCOUNTER → 2024-08-03 09:34 | Outpatient (BNVA) | payer MEDICARE, MEDICAID, SELFPAY | PROVIDERS: PCP Family Medicine; Visit Provider Thoracic Surgery (Cardiothoracic Vascular Surgery) | DX: I96 Gangrene, not elsewhere classified (principal); I87.2 Venous insufficiency (chronic) (peripheral); L97.821 Non-pressure chronic ulcer of other part of left lower leg limited to breakdown of skin | CPT/HCPCS: 97597; 97598; A6237; A6260 ==

== ENCOUNTER → 2024-08-10 09:29 | Outpatient (BNVA) | payer MEDICARE, MEDICAID, SELFPAY | PROVIDERS: PCP Family Medicine; Visit Provider Thoracic Surgery (Cardiothoracic Vascular Surgery) | DX: I96 Gangrene, not elsewhere classified (principal); I87.2 Venous insufficiency (chronic) (peripheral); L97.821 Non-pressure chronic ulcer of other part of left lower leg limited to breakdown of skin | CPT/HCPCS: 97597; 97598; 97605; A6237; A6250 ==

== ENCOUNTER → 2024-08-17 08:57 | Outpatient (BNVA) | payer MEDICARE, MEDICAID, SELFPAY | PROVIDERS: PCP Family Medicine; Visit Provider Thoracic Surgery (Cardiothoracic Vascular Surgery) | DX: I87.2 Venous insufficiency (chronic) (peripheral) (principal); I96 Gangrene, not elsewhere classified; L97.821 Non-pressure chronic ulcer of other part of left lower leg limited to breakdown of skin | CPT/HCPCS: 87070; 87176; 87205; 97597; 97598; 97605; A6237; A6250 ==

== ENCOUNTER → 2024-08-24 09:48 | Outpatient (BNVA) | payer MEDICARE, MEDICAID, SELFPAY | PROVIDERS: PCP Family Medicine; Visit Provider Thoracic Surgery (Cardiothoracic Vascular Surgery) | DX: I96 Gangrene, not elsewhere classified (principal); I87.2 Venous insufficiency (chronic) (peripheral); L97.821 Non-pressure chronic ulcer of other part of left lower leg limited to breakdown of skin | CPT/HCPCS: 97597; 97598; 97605; A6237; A6250 ==

== ENCOUNTER → 2024-08-31 09:13 | Outpatient (BNVA) | payer MEDICARE, MEDICAID, SELFPAY | PROVIDERS: PCP Family Medicine; Visit Provider Thoracic Surgery (Cardiothoracic Vascular Surgery) | DX: I96 Gangrene, not elsewhere classified (principal); I87.2 Venous insufficiency (chronic) (peripheral); L97.821 Non-pressure chronic ulcer of other part of left lower leg limited to breakdown of skin | CPT/HCPCS: 97597; 97598; A6197; A6253 ==

== ENCOUNTER → 2024-09-15 08:33 | Outpatient (BNVA) | payer MEDICARE, MEDICAID, SELFPAY | PROVIDERS: PCP Family Medicine; Visit Provider Thoracic Surgery (Cardiothoracic Vascular Surgery) | DX: I96 Gangrene, not elsewhere classified (principal); I87.2 Venous insufficiency (chronic) (peripheral); L97.821 Non-pressure chronic ulcer of other part of left lower leg limited to breakdown of skin | CPT/HCPCS: 97597; 97598; A6197; A6251; A6252 ==

== ENCOUNTER → 2024-09-22 08:55 | Outpatient (BNVA) | payer MEDICARE, MEDICAID, SELFPAY | PROVIDERS: PCP Family Medicine; Visit Provider Thoracic Surgery (Cardiothoracic Vascular Surgery) | DX: I96 Gangrene, not elsewhere classified (principal); I87.2 Venous insufficiency (chronic) (peripheral); L97.821 Non-pressure chronic ulcer of other part of left lower leg limited to breakdown of skin | CPT/HCPCS: 97597; 97598; A6197; A6253 ==

== ENCOUNTER → 2024-09-29 09:43 | Outpatient (BNVA) | payer MEDICARE, MEDICAID, SELFPAY | PROVIDERS: PCP Family Medicine; Visit Provider Thoracic Surgery (Cardiothoracic Vascular Surgery) | DX: I96 Gangrene, not elsewhere classified (principal); I87.2 Venous insufficiency (chronic) (peripheral); L97.821 Non-pressure chronic ulcer of other part of left lower leg limited to breakdown of skin | CPT/HCPCS: 97597; 97598; A6197; A6253 ==

== ENCOUNTER → 2024-10-06 09:38 | Outpatient (BNVA) | payer MEDICARE, MEDICAID, SELFPAY | PROVIDERS: PCP Family Medicine; Visit Provider Thoracic Surgery (Cardiothoracic Vascular Surgery) | DX: I96 Gangrene, not elsewhere classified (principal); I87.2 Venous insufficiency (chronic) (peripheral); L97.821 Non-pressure chronic ulcer of other part of left lower leg limited to breakdown of skin | CPT/HCPCS: 97597; 97598; A6197; A6253 ==

== ENCOUNTER → 2024-10-13 09:47 | Outpatient (BNVA) | payer MEDICARE, MEDICAID, SELFPAY | PROVIDERS: PCP Family Medicine | DX: I96 Gangrene, not elsewhere classified (principal); I87.2 Venous insufficiency (chronic) (peripheral); L97.822 Non-pressure chronic ulcer of other part of left lower leg with fat layer exposed | CPT/HCPCS: 97597; 97598; A6197; A6251; A6252 ==

== ENCOUNTER → 2024-10-20 10:48 | Outpatient (BNVA) | payer MEDICARE, MEDICAID, SELFPAY | PROVIDERS: PCP Family Medicine; Visit Provider Thoracic Surgery (Cardiothoracic Vascular Surgery) | DX: I96 Gangrene, not elsewhere classified (principal); I87.2 Venous insufficiency (chronic) (peripheral); L97.821 Non-pressure chronic ulcer of other part of left lower leg limited to breakdown of skin | CPT/HCPCS: 97597; 97598; A6197; A6253 ==

== ENCOUNTER → 2024-10-27 09:37 | Outpatient (BNVA) | payer MEDICARE, MEDICAID, SELFPAY | PROVIDERS: PCP Family Medicine; Visit Provider Thoracic Surgery (Cardiothoracic Vascular Surgery) | DX: I96 Gangrene, not elsewhere classified (principal); I87.2 Venous insufficiency (chronic) (peripheral); L97.821 Non-pressure chronic ulcer of other part of left lower leg limited to breakdown of skin | CPT/HCPCS: 97597; 97598; A6197; A6251; A6253 ==

== ENCOUNTER → 2024-11-03 09:36 | Outpatient (BNVA) | payer MEDICARE, MEDICAID, SELFPAY | PROVIDERS: PCP Family Medicine | DX: I87.312 Chronic venous hypertension (idiopathic) with ulcer of left lower extremity (principal); I87.2 Venous insufficiency (chronic) (peripheral); L97.822 Non-pressure chronic ulcer of other part of left lower leg with fat layer exposed; Z91.198 Patient's noncompliance with other medical treatment and regimen for other reason | CPT/HCPCS: 29581; A6197; A6251; A6253 ==

== ENCOUNTER → 2024-11-10 09:49 | Outpatient (BNVA) | payer MEDICARE, MEDICAID, SELFPAY | PROVIDERS: PCP Family Medicine; Visit Provider Thoracic Surgery (Cardiothoracic Vascular Surgery) | DX: I96 Gangrene, not elsewhere classified (principal); I87.2 Venous insufficiency (chronic) (peripheral); L97.821 Non-pressure chronic ulcer of other part of left lower leg limited to breakdown of skin | CPT/HCPCS: 29581; 97597; 97598; A6197; A6251; A6253 ==

== ENCOUNTER → 2024-11-17 10:44 | Outpatient (BNVA) | payer MEDICARE, MEDICAID, SELFPAY | PROVIDERS: PCP Family Medicine; Visit Provider Thoracic Surgery (Cardiothoracic Vascular Surgery) | DX: I96 Gangrene, not elsewhere classified (principal); I87.2 Venous insufficiency (chronic) (peripheral); L97.821 Non-pressure chronic ulcer of other part of left lower leg limited to breakdown of skin | CPT/HCPCS: 97597; 97598; A6197; A6251; A6253 ==

== ENCOUNTER → 2024-11-24 10:07 | Outpatient (BNVA) | payer MEDICARE, MEDICAID, SELFPAY | PROVIDERS: PCP Family Medicine; Visit Provider Thoracic Surgery (Cardiothoracic Vascular Surgery) | DX: I96 Gangrene, not elsewhere classified (principal); I87.2 Venous insufficiency (chronic) (peripheral); L97.821 Non-pressure chronic ulcer of other part of left lower leg limited to breakdown of skin | CPT/HCPCS: 97597; 97598; A6252; A6253 ==

== ENCOUNTER → 2024-12-01 10:21 | Outpatient (BNVA) | payer MEDICARE, MEDICAID, SELFPAY | PROVIDERS: PCP Family Medicine; Visit Provider Thoracic Surgery (Cardiothoracic Vascular Surgery) | DX: I96 Gangrene, not elsewhere classified (principal); I87.2 Venous insufficiency (chronic) (peripheral); L97.821 Non-pressure chronic ulcer of other part of left lower leg limited to breakdown of skin | CPT/HCPCS: 97597; 97598; A6197; A6251; A6252 ==

== ENCOUNTER → 2024-12-15 10:00 | Outpatient (BNVA) | payer MEDICARE, MEDICAID, SELFPAY | PROVIDERS: PCP Family Medicine; Visit Provider Thoracic Surgery (Cardiothoracic Vascular Surgery) | DX: I96 Gangrene, not elsewhere classified (principal); I87.2 Venous insufficiency (chronic) (peripheral); L97.822 Non-pressure chronic ulcer of other part of left lower leg with fat layer exposed | CPT/HCPCS: 97597; 97598 ==

== ENCOUNTER → 2024-12-22 10:04 | Outpatient (BNVA) | payer MEDICARE, MEDICAID, SELFPAY | PROVIDERS: PCP Family Medicine; Visit Provider Thoracic Surgery (Cardiothoracic Vascular Surgery) | DX: I96 Gangrene, not elsewhere classified (principal); I87.2 Venous insufficiency (chronic) (peripheral); L97.821 Non-pressure chronic ulcer of other part of left lower leg limited to breakdown of skin | CPT/HCPCS: 97597; 97598; A6197; A6252; A6253 ==

== ENCOUNTER → 2024-12-29 08:50 | Outpatient (BNVA) | payer MEDICARE, MEDICAID, SELFPAY | PROVIDERS: PCP Family Medicine; Visit Provider Thoracic Surgery (Cardiothoracic Vascular Surgery) | DX: I96 Gangrene, not elsewhere classified (principal); I87.2 Venous insufficiency (chronic) (peripheral); L97.821 Non-pressure chronic ulcer of other part of left lower leg limited to breakdown of skin | CPT/HCPCS: 97597; 97598 ==

== ENCOUNTER → 2025-01-12 08:53 | Outpatient (BNVA) | payer MEDICARE, MEDICAID, SELFPAY | PROVIDERS: PCP Family Medicine; Visit Provider Thoracic Surgery (Cardiothoracic Vascular Surgery) | DX: I96 Gangrene, not elsewhere classified (principal); I87.2 Venous insufficiency (chronic) (peripheral); L97.821 Non-pressure chronic ulcer of other part of left lower leg limited to breakdown of skin | CPT/HCPCS: 97597; 97598; A6197; A6251; A6253 ==

== ENCOUNTER → 2025-01-26 08:44 | Outpatient (BNVA) | payer MEDICARE, MEDICAID, SELFPAY | PROVIDERS: PCP Family Medicine; Visit Provider Thoracic Surgery (Cardiothoracic Vascular Surgery) | DX: I96 Gangrene, not elsewhere classified (principal); I87.2 Venous insufficiency (chronic) (peripheral); L97.821 Non-pressure chronic ulcer of other part of left lower leg limited to breakdown of skin | CPT/HCPCS: 97597; 97598; A6197; A6253 ==

== ENCOUNTER → 2025-02-16 08:42 | Outpatient (BNVA) | payer MEDICARE, MEDICAID, SELFPAY | PROVIDERS: PCP Family Medicine; Visit Provider Thoracic Surgery (Cardiothoracic Vascular Surgery) | DX: I96 Gangrene, not elsewhere classified (principal); I87.2 Venous insufficiency (chronic) (peripheral); L97.821 Non-pressure chronic ulcer of other part of left lower leg limited to breakdown of skin | CPT/HCPCS: 97597; 97598; A6197; A6252 ==

== ENCOUNTER → 2025-03-02 09:21 | Outpatient (BNVA) | payer MEDICARE, MEDICAID, SELFPAY | PROVIDERS: PCP Family Medicine; Visit Provider Thoracic Surgery (Cardiothoracic Vascular Surgery) | DX: I96 Gangrene, not elsewhere classified (principal); I87.2 Venous insufficiency (chronic) (peripheral); L97.821 Non-pressure chronic ulcer of other part of left lower leg limited to breakdown of skin | CPT/HCPCS: 97597; 97598; A6197; A6252; A6253 ==

== ENCOUNTER → 2025-03-09 10:22 | Outpatient (BNVA) | payer MEDICARE, MEDICAID, SELFPAY | PROVIDERS: PCP Family Medicine; Visit Provider Thoracic Surgery (Cardiothoracic Vascular Surgery) | DX: I96 Gangrene, not elsewhere classified (principal); I87.2 Venous insufficiency (chronic) (peripheral); L97.821 Non-pressure chronic ulcer of other part of left lower leg limited to breakdown of skin | CPT/HCPCS: 97597; 97598 ==

== ENCOUNTER → 2025-03-16 09:29 | Outpatient (BNVA) | payer MEDICARE, MEDICAID, SELFPAY | PROVIDERS: PCP Family Medicine; Visit Provider Thoracic Surgery (Cardiothoracic Vascular Surgery) | DX: I96 Gangrene, not elsewhere classified (principal); I87.2 Venous insufficiency (chronic) (peripheral); L97.821 Non-pressure chronic ulcer of other part of left lower leg limited to breakdown of skin | CPT/HCPCS: 97597; 97598; A6197; A6253 ==

== ENCOUNTER → 2025-03-23 10:35 | Outpatient (BNVA) | payer MEDICARE, MEDICAID, SELFPAY | PROVIDERS: PCP Family Medicine; Visit Provider Thoracic Surgery (Cardiothoracic Vascular Surgery) | DX: I96 Gangrene, not elsewhere classified (principal); I87.2 Venous insufficiency (chronic) (peripheral); L97.821 Non-pressure chronic ulcer of other part of left lower leg limited to breakdown of skin | CPT/HCPCS: 97597; 97598; A6197; A6252; A6253 ==

== ENCOUNTER → 2025-03-31 08:33 | Outpatient (BNVA) | payer MEDICARE, MEDICAID, SELFPAY | PROVIDERS: PCP Family Medicine; Visit Provider Thoracic Surgery (Cardiothoracic Vascular Surgery) | DX: I96 Gangrene, not elsewhere classified (principal); I87.2 Venous insufficiency (chronic) (peripheral); L97.821 Non-pressure chronic ulcer of other part of left lower leg limited to breakdown of skin | CPT/HCPCS: 97597; 97598; A6197; A6252; A6253 ==

== ENCOUNTER → 2025-04-06 08:37 | Outpatient (BNVA) | payer MEDICARE, MEDICAID, SELFPAY | PROVIDERS: PCP Family Medicine; Visit Provider Thoracic Surgery (Cardiothoracic Vascular Surgery) | DX: I96 Gangrene, not elsewhere classified (principal); I87.2 Venous insufficiency (chronic) (peripheral); L97.821 Non-pressure chronic ulcer of other part of left lower leg limited to breakdown of skin | CPT/HCPCS: 97597; 97598; A6197; A6252 ==

== ENCOUNTER → 2025-04-13 10:46 | Outpatient (BNVA) | payer MEDICARE, MEDICAID, SELFPAY | PROVIDERS: PCP Family Medicine; Visit Provider Thoracic Surgery (Cardiothoracic Vascular Surgery) | DX: I96 Gangrene, not elsewhere classified (principal); I87.2 Venous insufficiency (chronic) (peripheral); L97.821 Non-pressure chronic ulcer of other part of left lower leg limited to breakdown of skin | CPT/HCPCS: 97597; 97598; A6197; A6251; A6253 ==

== ENCOUNTER → 2025-04-20 10:14 | Outpatient (BNVA) | payer MEDICARE, MEDICAID, SELFPAY | PROVIDERS: PCP Family Medicine; Visit Provider Thoracic Surgery (Cardiothoracic Vascular Surgery) | DX: I96 Gangrene, not elsewhere classified (principal); I87.2 Venous insufficiency (chronic) (peripheral); L97.821 Non-pressure chronic ulcer of other part of left lower leg limited to breakdown of skin | CPT/HCPCS: 97597; 97598; A6197; A6251; A6253 ==

== ENCOUNTER → 2025-04-27 09:25 | Outpatient (BNVA) | payer MEDICARE, MEDICAID, SELFPAY | PROVIDERS: PCP Family Medicine; Visit Provider Thoracic Surgery (Cardiothoracic Vascular Surgery) | DX: I96 Gangrene, not elsewhere classified (principal); I87.2 Venous insufficiency (chronic) (peripheral); L97.821 Non-pressure chronic ulcer of other part of left lower leg limited to breakdown of skin | CPT/HCPCS: 97597; 97598; A6197; A6251; A6253 ==

== ENCOUNTER → 2025-05-04 09:23 | Outpatient (BNVA) | payer MEDICARE, MEDICAID, SELFPAY | PROVIDERS: PCP Family Medicine; Visit Provider Thoracic Surgery (Cardiothoracic Vascular Surgery) | DX: I96 Gangrene, not elsewhere classified (principal); I87.2 Venous insufficiency (chronic) (peripheral); L97.821 Non-pressure chronic ulcer of other part of left lower leg limited to breakdown of skin | CPT/HCPCS: 97597; 97598; A6197; A6252; A6253 ==

== ENCOUNTER → 2025-05-11 09:41 | Outpatient (BNVA) | payer MEDICARE, MEDICAID, SELFPAY | PROVIDERS: PCP Family Medicine; Visit Provider Thoracic Surgery (Cardiothoracic Vascular Surgery) | DX: I96 Gangrene, not elsewhere classified (principal); I87.2 Venous insufficiency (chronic) (peripheral); L97.821 Non-pressure chronic ulcer of other part of left lower leg limited to breakdown of skin | CPT/HCPCS: 97597; 97598; A6197; A6252; A6253 ==

== ENCOUNTER → 2025-05-18 09:31 | Outpatient (BNVA) | payer MEDICARE, MEDICAID, SELFPAY | PROVIDERS: PCP Family Medicine; Visit Provider Thoracic Surgery (Cardiothoracic Vascular Surgery) | DX: I96 Gangrene, not elsewhere classified (principal); I87.2 Venous insufficiency (chronic) (peripheral); L97.821 Non-pressure chronic ulcer of other part of left lower leg limited to breakdown of skin | CPT/HCPCS: 97597; 97598; A6197; A6251; A6253 ==

== ENCOUNTER → 2025-05-25 09:26 | Outpatient (BNVA) | payer MEDICARE, MEDICAID, SELFPAY | PROVIDERS: PCP Family Medicine; Visit Provider Thoracic Surgery (Cardiothoracic Vascular Surgery) | DX: I96 Gangrene, not elsewhere classified (principal); I87.2 Venous insufficiency (chronic) (peripheral); L97.821 Non-pressure chronic ulcer of other part of left lower leg limited to breakdown of skin | CPT/HCPCS: 97597; 97598; A6197; A6251; A6253 ==

== ENCOUNTER → 2025-06-01 09:24 | Outpatient (BNVA) | payer MEDICARE, MEDICAID, SELFPAY | PROVIDERS: PCP Family Medicine; Visit Provider Thoracic Surgery (Cardiothoracic Vascular Surgery) | DX: I96 Gangrene, not elsewhere classified (principal); I87.2 Venous insufficiency (chronic) (peripheral); L97.821 Non-pressure chronic ulcer of other part of left lower leg limited to breakdown of skin | CPT/HCPCS: 97597; 97598; A6021; A6252; A6253 ==

== ENCOUNTER → 2025-06-08 09:38 | Outpatient (BNVA) | payer MEDICARE, MEDICAID, SELFPAY | PROVIDERS: PCP Family Medicine; Visit Provider Thoracic Surgery (Cardiothoracic Vascular Surgery) | DX: I96 Gangrene, not elsewhere classified (principal); I87.2 Venous insufficiency (chronic) (peripheral); L97.821 Non-pressure chronic ulcer of other part of left lower leg limited to breakdown of skin | CPT/HCPCS: 87070; 97597; 97598; A6197; A6253 ==

== ENCOUNTER → 2025-06-15 09:20 | Outpatient (BNVA) | payer MEDICARE, MEDICAID, SELFPAY | PROVIDERS: PCP Family Medicine; Visit Provider Thoracic Surgery (Cardiothoracic Vascular Surgery) | DX: I96 Gangrene, not elsewhere classified (principal); I87.2 Venous insufficiency (chronic) (peripheral); L97.821 Non-pressure chronic ulcer of other part of left lower leg limited to breakdown of skin | CPT/HCPCS: 97597; 97598 ==

== ENCOUNTER → 2025-06-22 09:40 | Outpatient (BNVA) | payer MEDICARE, MEDICAID, SELFPAY | PROVIDERS: PCP Family Medicine; Visit Provider Thoracic Surgery (Cardiothoracic Vascular Surgery) | DX: I96 Gangrene, not elsewhere classified (principal); I87.2 Venous insufficiency (chronic) (peripheral); L97.821 Non-pressure chronic ulcer of other part of left lower leg limited to breakdown of skin | CPT/HCPCS: 97597; 97598; A6252 ==

== ENCOUNTER → 2025-06-29 09:57 | Outpatient (BNVA) | payer MEDICARE, MEDICAID, SELFPAY | PROVIDERS: PCP Family Medicine; Visit Provider Thoracic Surgery (Cardiothoracic Vascular Surgery) | DX: I96 Gangrene, not elsewhere classified (principal); I87.2 Venous insufficiency (chronic) (peripheral); L97.821 Non-pressure chronic ulcer of other part of left lower leg limited to breakdown of skin | CPT/HCPCS: 29581; 97597; 97598; A6252; A6253 ==

== ENCOUNTER → 2025-07-06 09:30 | Outpatient (BNVA) | payer MEDICARE, MEDICAID, SELFPAY | PROVIDERS: PCP Family Medicine; Visit Provider Thoracic Surgery (Cardiothoracic Vascular Surgery) | DX: I96 Gangrene, not elsewhere classified (principal); I87.2 Venous insufficiency (chronic) (peripheral); L97.821 Non-pressure chronic ulcer of other part of left lower leg limited to breakdown of skin | CPT/HCPCS: 97597; 97598; A6197; A6252 ==

== ENCOUNTER 2025-07-13 09:11 | Outpatient (CLI) | payer MEDICARE, MEDICAID, SELFPAY ==
--- NOTE | 2025-07-13 09:30 | USR_ITS ---
PROCEDURE INFORMATION: Exam: US Duplex Left Lower Extremity Veins, Limited Exam date and time: 07/13/2025 9:26 AM Age: 60 years old Clinical indication: Injury or trauma; Other: Open wound; Wound, open; Left; Ankle and foot level; Vessel not specified; Additional info: Left lower leg edema/ulcer. TECHNIQUE: Imaging protocol: Real-time duplex ultrasound of the left extremity with 2-D boateng scale, color Doppler flow and spectral waveform analysis including responses to compression and other maneuvers (when performed) with image documentation. Limited exam focused on the left lower extremity veins. COMPARISON: CR XR tibia fibula LT 2V [id number] 07/23/2022 8:07 PM FINDINGS: Left deep veins: Unremarkable. The common femoral, femoral, and popliteal veins are patent without thrombus. Normal Doppler waveforms. Normal compressibility and/or augmentation response. Superficial veins: Greater saphenous vein at the saphenofemoral junction is patent without thrombus. Soft tissues: Lymph nodes are seen in the left groin with fatty asher. US/CV jessica dup insuff [facility] [id number] IMPRESSION: No evidence of deep vein thrombosis.
== END 2025-07-13 09:12 | disposition home or self-care (01) ==
LOC: RAD 09:13
PROVIDERS: PCP Nurse Practitioner Family; Visit Provider Thoracic Surgery (Cardiothoracic Vascular Surgery)
DX: I96 Gangrene, not elsewhere classified (principal); I87.2 Venous insufficiency (chronic) (peripheral); L97.822 Non-pressure chronic ulcer of other part of left lower leg with fat layer exposed
CPT/HCPCS: 93971; 97597; 97598; A6253

== ENCOUNTER → 2025-07-20 09:32 | Outpatient (BNVA) | payer MEDICARE, MEDICAID, SELFPAY | PROVIDERS: PCP Family Medicine; Visit Provider Thoracic Surgery (Cardiothoracic Vascular Surgery) | DX: I96 Gangrene, not elsewhere classified (principal); I87.2 Venous insufficiency (chronic) (peripheral); L97.821 Non-pressure chronic ulcer of other part of left lower leg limited to breakdown of skin | CPT/HCPCS: 97597; 97598; A6197; A6252; A6253 ==